=== PATIENT | female | born 1975 | race African-American/Black ===

== ENCOUNTER → 2016-11-17 | Outpatient (CLI) | payer MEDICARE, OTHER ==
--- NOTE | 2016-11-17 12:07 | NM ---
EXAMINATION TYPE: NM bone 3 phase DATE OF EXAM: 11/17/2016 11:22 AM COMPARISON: NONE HISTORY: Osteomyelitis Triple phase bone scintigraphy was performed following the injection of26.1 mCi Tc 99m MDP. Immediat e images and 3 hours post injection images acquired. FINDINGS: Blood flow: There is subtle increased radiotracer within the medial right ankle on blood flow suspici ous visualized during the midportion of the blood flow. Blood pool: Subtle radiotracer accumulation may be along the medial right ankle. Static images: Some focal uptake may be within the proximal medial distal ankle on static images. IMPRESSION: 1. Increased uptake within the medial right ankle on all 3 phases of bone scan. Some early osteomyeli tis may be present. Correlate with location of the patient's abnormality.
== END | disposition home or self-care (01) ==
LOC: RADNMMAIN 07:26
PROVIDERS: ATTEND Thoracic Surgery (Cardiothoracic Vascular Surgery)
DX: M86.8X8 Other osteomyelitis, other site (principal)
CPT/HCPCS: 78315; A9503; 93923

== ENCOUNTER 2021-12-08 19:46 | Inpatient (IN) | payer MEDICARE, OTHER ==
[2021-12-08] MEDS ORDERED: MORPHINE SULFATE 4 MG/ML SYRINGE IV STA (20:02)
[2021-12-08] MEDS ORDERED: ONDANSETRON 4 MG/2 ML VIAL IVP STA (20:02)
[2021-12-08] MEDS ORDERED: ACETAMINOPHEN IV (For NPO) 1,000 MG in EMPTY BAG 1 BAG IVPB ONE (20:08)
[2021-12-08] MEDS ORDERED: LORazepam 2 MG/ML INJ IV STA (20:09)
--- NOTE | 2021-12-08 20:12 | ED ---
Abdominal Pain HPI - General Stated Complaint: Nausea, Anxiety Time Seen by Provider: 12/08/21 19:52 Source: RN notes reviewed - History of Present Illness Initial Comments: This is a 38-year-old female presents to emergency with lower abdominal pain. Coming from the dialysis center. Has had diarrhea for 2 weeks. No blood. Now vomiting. Patient states she finished her dialysis's. Patient noted to be hypotensive which is usual for the patient during and right after dialysis. Lower abdominal pain, exacerbated by palpation and movement. Does not produce urine No headache, no fever or chills, no changes in vision or hearing, no sore throat or difficulty with speech, no neck pain, no chest pain or shortness of breath, no nausea or vomiting, no changes in urination or bowel movements, no numbness or tingling, no extremity pain, no skin rashes or lesions. - Related Data Home Medications Medication Instructions Recorded Confirmed Atorvastatin [Lipitor] 40 mg PO HS 05/19/16 12/08/21 Clopidogrel [Plavix] 75 mg PO DAILY 05/19/16 12/08/21 amLODIPine BESYLATE [Norvasc] 5 mg PO DAILY 10/21/16 12/08/21 Insulin Detemir (Levemir) [Levemir] 18 unit SQ HS 03/17/17 12/08/21 ARIPiprazole [Abilify] 2 mg PO DAILY 12/08/21 12/08/21 DULoxetine HCL [Cymbalta] 60 mg PO HS 12/08/21 12/08/21 Doxepin HCl 50 mg PO HS 12/08/21 12/08/21 Insulin Regular, Human [NovoLIN R] See Protocol SQ TID-W/MEALS 12/08/21 12/08/21 LORazepam [Ativan] 1 mg PO BID PRN 12/08/21 12/08/21 Midodrine HCl 15 mg PO DIRECTED PRN 12/08/21 12/08/21 Nephrovite 1 tab PO DAILY 12/08/21 12/08/21 Propranolol [Inderal] 20 mg PO BID 12/08/21 12/08/21 oxyCODONE HCL 5 mg PO Q4H PRN 12/08/21 12/08/21 tiZANidine [Zanaflex] 2 mg PO Q6H PRN 12/08/21 12/08/21 Allergies Allergy/AdvReac Type Severity Reaction Status Date / Time No Known Allergies Allergy Verified 12/08/21 21:23 Review of Systems ROS Statement: Those systems with pertinent positive or pertinent negative responses have been documented in the HPI. ROS Other: All systems not noted in ROS Statement are negative. 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 History of Any Multi-Drug Resistant Organisms: MRSA Date of last positivie culture/infection: 09/22/17 MDRO Source:: toe Past Surgical History: Cholecystectomy, Orthopedic Surgery Additional Past Surgical History / Comment(s): A-V GRAFT. 3 D&C'S; Kidney transplant 2008. ORIF RIGHT 5TH finger.; numerous dialysis catheters, peritoneal dialysis catheter insertion and removal, IJ permacath insertion and removal, left-sided IJ permacath, amputiation of all digits left hand and right middle finger tip amputation 07/08/2016 Past Anesthesia/Blood Transfusion Reactions: No Reported Reaction Additional Past Anesthesia/Blood Transfusion Reaction / Comment(s): Pt states she has received blood in the past without reaction. Additional Psychological History / Comment(s): resides at [facility]. - Past Family History Mother Family Medical History: Diabetes Mellitus Additional Family Medical History / Comment(s): RENAL FAILURE, SICKLE CELL TRAIT Father Family Medical History: Diabetes Mellitus, Hyperlipidemia, Hypertension Additional Family Medical History / Comment(s): Father at the age of 73 yrs. General Exam General appearance: alert, in distress Head exam: Present: atraumatic, normocephalic, normal inspection Eye exam: Present: normal appearance, PERRL, EOMI. Absent: scleral icterus, conjunctival injection, periorbital swelling ENT exam: Present: normal exam, mucous membranes moist Neck exam: Present: normal inspection. Absent: tenderness, meningismus, lymphadenopathy Respiratory exam: Present: normal lung sounds bilaterally. Absent: respiratory distress, wheezes, rales, rhonchi, stridor Cardiovascular Exam: Present: regular rate, normal rhythm, normal heart sounds. Absent: systolic murmur, diastolic murmur, rubs, gallop, clicks GI/Abdominal exam: Present: soft, tenderness, guarding, normal bowel sounds. Absent: distended, rebound, rigid Extremities exam: Present: full ROM, normal capillary refill, other (Patient is a double amputee bilateral lower legs). Absent: tenderness, pedal edema, joint swelling, calf tenderness Back exam: Present: normal inspection Neurological exam: Present: alert, oriented X3, CN II-XII intact Psychiatric exam: Present: normal affect, normal mood Skin exam: Present: warm, dry, intact, normal color. Absent: rash Course Vital Signs 12/08/21 12/08/21 12/09/21 19:51 23:54 01:55 Temperature 97.3 F L Pulse Rate 72 75 Respiratory 103 H 16 Rate Blood Pressure 80/63 73/62 92/42 O2 Sat by Pulse 94 L Oximetry - Reevaluation(s) Reevaluation #1: 12/09/21 00:26 Medical record is reviewed Symptoms are improved pain buckley. However the patient remains hypotensive. Patient is informed of results and questions answered Patient in no distress Medical Decision Making - Medical Decision Making Lower abdominal pain, hemodialysis patient.Patient came from hemodialysis and was hypotensive, patient states she normally gets hypertensive dialysis. However patient remained hypotensive. We had trouble getting initial blood work. Patient received a 500 mL fluid bolus with normal saline. Patient's lactic acid was 2.1. Patient has had 2 weeks of diarrhea and now vomiting. Patient will be admitted for evaluation. Well discussed case in detail with Dr. Allen Reynolds. consult gastroenterology. Given the fact patient has had diarrhea for 2 weeks and vomiting. Dehydration is likely culprit. The case was discussed in detail with ED attending physician. Presentation, findings, treatment plan discussed in detail. Repeat fluid bolus ordered after discussion with ED attending physician, Dr. Santos. Computed tomography scan shows mild colitis. Patient was told to return to the ER for any signs or symptoms worsen. Told to return immediately if any other problems arise. All questions answered. Treatment plan discussed. Patient in agreement Every effort has been made to ensure accuracy of this dictation. However, due to the limitations of electronic medical records and dictation devices, errors in charting still occur. Due to the renal failure will hold any potassium replacement Case was discussed with Dr. Reynolds at 12:26 AM ED attending physician, Dr. Santos. - Lab Data Result diagrams: 12/08/21 23:20 12/08/21 23:20 Lab Results 12/08/21 12/08/21 12/08/21 Range/Units 23:20 23:20 23:20 WBC 7.0 (3.8-10.6) k/uL RBC 4.62 (3.80-5.40) m/uL Hgb 12.8 (11.4-16.0) gm/dL Hct 40.0 (34.0-46.0) % MCV 86.5 (80.0-100.0) fL MCH 27.7 (25.0-35.0) pg MCHC 32.0 (31.0-37.0) g/dL RDW 16.7 H (11.5-15.5) % Plt Count 125 L (150-450) k/uL MPV 8.9 Neutrophils % 52 % Lymphocytes % 39 % Monocytes % 4 % Eosinophils % 3 % Basophils % 1 % Neutrophils # 3.6 (1.3-7.7) k/uL Lymphocytes # 2.7 (1.0-4.8) k/uL Monocytes # 0.3 (0-1.0) k/uL Eosinophils # 0.2 (0-0.7) k/uL Basophils # 0.1 (0-0.2) k/uL Hypochromasia Slight Anisocytosis Slight PT 10.6 (9.0-12.0) sec INR 1.0 (<1.2) APTT 25.1 (22.0-30.0) sec Sodium 130 L (137-145) mmol/L Potassium 2.7 L* (3.5-5.1) mmol/L Chloride 96 L (98-107) mmol/L Carbon Dioxide 22 (22-30) mmol/L Anion Gap 12 mmol/L BUN 5 L (7-17) mg/dL Creatinine 3.11 H (0.52-1.04) mg/dL Est GFR (CKD-EPI)AfAm 20 (>60 ml/min/1.73 sqM) Est GFR (CKD-EPI)NonAf 17 (>60 ml/min/1.73 sqM) Glucose 221 H (74-99) mg/dL Lactic Ac Sepsis Rflx Plasma Lactic Acid Conor (0.7-2.0) mmol/L Calcium 7.8 L (8.4-10.2) mg/dL Phosphorus 1.8 L (2.5-4.5) mg/dL Magnesium 1.6 (1.6-2.3) mg/dL Total Bilirubin 0.8 (0.2-1.3) mg/dL AST 15 (14-36) U/L ALT 8 (4-34) U/L Alkaline Phosphatase 94 (38-126) U/L Total Protein 7.1 (6.3-8.2) g/dL Albumin 2.7 L (3.5-5.0) g/dL Lipase 380 H (23-300) U/L Coronavirus (PCR) (Not Detectd) 12/08/21 12/08/21 12/09/21 Range/Units 23:20 23:54 01:54 WBC (3.8-10.6) k/uL RBC (3.80-5.40) m/uL Hgb (11.4-16.0) gm/dL Hct (34.0-46.0) % MCV (80.0-100.0) fL MCH (25.0-35.0) pg MCHC (31.0-37.0) g/dL RDW (11.5-15.5) % Plt Count (150-450) k/uL MPV Neutrophils % % Lymphocytes % % Monocytes % % Eosinophils % % Basophils % % Neutrophils # (1.3-7.7) k/uL Lymphocytes # (1.0-4.8) k/uL Monocytes # (0-1.0) k/uL Eosinophils # (0-0.7) k/uL Basophils # (0-0.2) k/uL Hypochromasia Anisocytosis PT (9.0-12.0) sec INR (<1.2) APTT (22.0-30.0) sec Sodium (137-145) mmol/L Potassium (3.5-5.1) mmol/L Chloride (98-107) mmol/L Carbon Dioxide (22-30) mmol/L Anion Gap mmol/L BUN (7-17) mg/dL Creatinine (0.52-1.04) mg/dL Est GFR (CKD-EPI)AfAm (>60 ml/min/1.73 sqM) Est GFR (CKD-EPI)NonAf (>60 ml/min/1.73 sqM) Glucose (74-99) mg/dL Lactic Ac Sepsis Rflx Y Plasma Lactic Acid Conor 2.1 H* (0.7-2.0) mmol/L Calcium (8.4-10.2) mg/dL Phosphorus (2.5-4.5) mg/dL Magnesium (1.6-2.3) mg/dL Total Bilirubin (0.2-1.3) mg/dL AST (14-36) U/L ALT (4-34) U/L Alkaline Phosphatase (38-126) U/L Total Protein (6.3-8.2) g/dL Albumin (3.5-5.0) g/dL Lipase (23-300) U/L Coronavirus (PCR) Not Detected (Not Detectd) 12/09/21 Range/Units 01:55 WBC (3.8-10.6) k/uL RBC (3.80-5.40) m/uL Hgb (11.4-16.0) gm/dL Hct (34.0-46.0) % MCV (80.0-100.0) fL MCH (25.0-35.0) pg MCHC (31.0-37.0) g/dL RDW (11.5-15.5) % Plt Count (150-450) k/uL MPV Neutrophils % % Lymphocytes % % Monocytes % % Eosinophils % % Basophils % % Neutrophils # (1.3-7.7) k/uL Lymphocytes # (1.0-4.8) k/uL Monocytes # (0-1.0) k/uL Eosinophils # (0-0.7) k/uL Basophils # (0-0.2) k/uL Hypochromasia Anisocytosis PT (9.0-12.0) sec INR (<1.2) APTT (22.0-30.0) sec Sodium (137-145) mmol/L Potassium (3.5-5.1) mmol/L Chloride (98-107) mmol/L Carbon Dioxide (22-30) mmol/L Anion Gap mmol/L BUN (7-17) mg/dL Creatinine (0.52-1.04) mg/dL Est GFR (CKD-EPI)AfAm (>60 ml/min/1.73 sqM) Est GFR (CKD-EPI)NonAf (>60 ml/min/1.73 sqM) Glucose (74-99) mg/dL Lactic Ac Sepsis Rflx Plasma Lactic Acid Conor 1.6 (0.7-2.0) mmol/L Calcium (8.4-10.2) mg/dL Phosphorus (2.5-4.5) mg/dL Magnesium (1.6-2.3) mg/dL Total Bilirubin (0.2-1.3) mg/dL AST (14-36) U/L ALT (4-34) U/L Alkaline Phosphatase (38-126) U/L Total Protein (6.3-8.2) g/dL Albumin (3.5-5.0) g/dL Lipase (23-300) U/L Coronavirus (PCR) (Not Detectd) Critical Care Time Critical Care Time: Yes Total Critical Care Time: 30 Critical Care Time: Critical care documentation for prolonged hypotension recalcitrant to IV fluids. Disposition Clinical Impression: Nausea vomiting and diarrhea, Colitis, Dehydration, Chronic renal failure, Hypotension Narrative: Chronic renal failure on hemodialysis Disposition: ADMITTED IP TO THIS [facility] Condition: Fair Decision to Admit Reason: Admit from EC Decision Time: 00:22
[2021-12-08] MEDS ORDERED: SODIUM CHLORIDE 0.9% 500 ML 500 ML IV ONE (21:26)
--- NOTE | 2021-12-08 21:38 | XR ---
EXAMINATION TYPE: XR chest 1V portable DATE OF EXAM: 12/08/2021 COMPARISON: 08/25/2016 HISTORY: Pain TECHNIQUE: Single frontal view of the chest is obtained. FINDINGS: There is demonstration of the left IJ dialysis type catheter with tip overlying the SVC/ri ght atrial junction. There is no focal air space opacity, pleural effusion, or pneumothorax seen. Th e cardiac silhouette size is within normal limits. The osseous structures are intact. Stable surgic al hardware about the left lower chest wall again seen. IMPRESSION: No acute process.
--- NOTE | 2021-12-08 22:00 | CT ---
EXAMINATION TYPE: CT abdomen pelvis wo con DATE OF EXAM: 12/08/2021 COMPARISON: None available HISTORY: mid abd pain CT DLP: 1004.4 mGycm Automated exposure control for dose reduction was used. TECHNIQUE: Helical acquisition of images was performed from the lung bases through the pelvis. FINDINGS: LUNG BASES: Minimal right basilar atelectasis. LIVER/GB: No significant abnormality is appreciated. PANCREAS: No significant abnormality is seen. SPLEEN: No significant abnormality is seen. ADRENALS: No significant abnormality is seen. KIDNEYS: No hydronephrosis or nephrolithiasis. 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 FREE AIR: No free air is visualized RETROPERITONEAL ADENOPATHY: None visualized REPRODUCTIVE ORGANS: No significant abnormality is seen URINARY BLADDER: No significant abnormality is seen. PELVIC ADENOPATHY: None visualized. OSSEOUS STRUCTURES: No significant abnormality is seen. BOWEL: Diffuse collapse of the colon with mild wall thickening. No bowel obstruction or free fluid. OTHER: Advanced atherosclerotic disease. Chronic appearing left pelvic anterior wall thickening with mild calcifications. IMPRESSION: NONSPECIFIC PANCOLONIC MILD WALL THICKENING AND COLLAPSE. FINDINGS MAY RELATE TO COLITIS IN THE APPRO PRIATE CLINICAL SETTING. ALTHOUGH MAY REPRESENT DECOMPRESSED COLON. NO BOWEL OBSTRUCTION. HORSESHOE KIDNEY WITH MARKED RENAL ATROPHY. CHRONIC APPEARING LEFT PELVIC ANTERIOR WALL THICKENING WITH MILD CALCIFICATIONS. ADVANCED ATHEROSCLEROTIC DISEASE.
[2021-12-08 23:28] LABS: Anisocytosis Slight; Basophils # (A) 0.1 k/uL (0-0.2); Basophils % (A) 1 %; Eosinophils # (A) 0.2 k/uL (0-0.7); Eosinophils % (A) 3 %; HGB 12.8 gm/dL (11.4-16.0); Hypochromasia Slight; Lymphocytes # (A) 2.7 k/uL (1.0-4.8); Lymphocytes % (A) 39 %; MCH 27.7 pg (25.0-35.0); MCV 86.5 fL (80.0-100.0); Mean Platelet Volume 8.9; Monocytes # (A) 0.3 k/uL (0-1.0); Monocytes % (A) 4 %; Neutrophils # (A) 3.6 k/uL (1.3-7.7); Neutrophils % (A) 52 %; Platelet Count 125 k/uL (150-450); RBC 4.62 m/uL (3.80-5.40); RDW 16.7 % (11.5-15.5)
[2021-12-08 23:40] LABS: Partial Thromboplastin Time 25.1 sec (22.0-30.0); Prothrombin Time 10.6 sec (9.0-12.0)
[2021-12-08 23:44] LABS: Albumin 2.7 g/dL (3.5-5.0); Calcium 7.8 mg/dL (8.4-10.2); Magnesium 1.6 mg/dL (1.6-2.3); Phosphorus 1.8 mg/dL (2.5-4.5); Total Bilirubin 0.8 mg/dL (0.2-1.3); Total Protein 7.1 g/dL (6.3-8.2)
[2021-12-08 23:54] LABS: Potassium 2.7 mmol/L (3.5-5.1)
[2021-12-09] MEDS ORDERED: SODIUM CHLORIDE 0.9% 500 ML 500 ML IV ONE (00:12)
[2021-12-09] MEDS ORDERED: NALOXONE 0.4 MG/ML 1 ML VIAL IV PRN (00:15)
[2021-12-09] MEDS ORDERED: ONDANSETRON 4 MG/2 ML VIAL IVP STA (00:18)
[2021-12-09] MEDS: ONDANSETRON 4 MG/2 ML VIAL IVP PRN ×2 (00:43→13:04)
[2021-12-09] MEDS ORDERED: INSULIN DETEMIR (LEVEMIR) 100 UNIT/ML SYR SQ SCH (00:45)
[2021-12-09] MEDS ORDERED: LORazepam 2 MG/ML INJ IV STA (02:19)
[2021-12-09 07:05] LABS: Glucose,Whole Blood 258 mg/dL (75-99)
[2021-12-09] MEDS: HEPARIN SODIUM,PORCINE/PF 5,000 UNIT/0.5 ML SYRINGE SQ SCH ×2 (10:11→23:40)
--- NOTE | 2021-12-09 11:27 | P.NPCON ---
History of Present Illness - Reason for Consult end stage renal disease - History of Present Illness Patient is a 46-year-old female with history of end-stage renal disease, on hemodialysis on a Wednesday schedule. Patient was sent into the hospital from dialysis yesterday as her blood pressure was significantly low towards the end of treatment. Patient reports having had diarrhea on and off for about 2 weeks. She denied any significant abdominal pain. Patient will was hypotensive with systolic blood pressure in the 70s. Currently she is maintained on IV fluids at 1 50 mL an hour. Potassium was also low. 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 History of Any Multi-Drug Resistant Organisms: MRSA Date of last positivie culture/infection: 09/22/17 MDRO Source:: toe Past Surgical History: Cholecystectomy, Orthopedic Surgery Additional Past Surgical History / Comment(s): A-V GRAFT. 3 D&C'S; Kidney tr ansplant 2008. ORIF RIGHT 5TH finger.; numerous dialysis catheters, peritoneal dialysis catheter insertion and removal, IJ permacath insertion and removal, left-sided IJ permacath, amputiation of all digits left hand and right middle finger tip amputation 07/08/2016 Past Anesthesia/Blood Transfusion Reactions: No Reported Reaction Additional Past Anesthesia/Blood Transfusion Reaction / Comment(s): Pt states she has received blood in the past without reaction. Additional Psychological History / Comment(s): resides at [facility]. - Past Family History Mother Family Medical History: Diabetes Mellitus Additional Family Medical History / Comment(s): RENAL FAILURE, SICKLE CELL TRAIT Father Family Medical History: Diabetes Mellitus, Hyperlipidemia, Hypertension Additional Family Medical History / Comment(s): Father at the age of 73 yrs. Medications and Allergies Home Medications Medication Instructions Recorded Confirmed Type Atorvastatin [Lipitor] 40 mg PO HS 05/19/16 12/08/21 History Clopidogrel [Plavix] 75 mg PO DAILY 05/19/16 12/08/21 History amLODIPine BESYLATE [Norvasc] 5 mg PO DAILY 10/21/16 12/08/21 History Insulin Detemir (Levemir) [Levemir] 18 unit SQ HS 03/17/17 12/08/21 History ARIPiprazole [Abilify] 2 mg PO DAILY 12/08/21 12/08/21 History DULoxetine HCL [Cymbalta] 60 mg PO HS 12/08/21 12/08/21 History Doxepin HCl 50 mg PO HS 12/08/21 12/08/21 History Insulin Regular, Human [NovoLIN R] See Protocol SQ TID-W/MEALS 12/08/21 12/08/21 History LORazepam [Ativan] 1 mg PO BID PRN 12/08/21 12/08/21 History Midodrine HCl 15 mg PO DIRECTED PRN 12/08/21 12/08/21 History Nephrovite 1 tab PO DAILY 12/08/21 12/08/21 History Propranolol [Inderal] 20 mg PO BID 12/08/21 12/08/21 History oxyCODONE HCL 5 mg PO Q4H PRN 12/08/21 12/08/21 History tiZANidine [Zanaflex] 2 mg PO Q6H PRN 12/08/21 12/08/21 History Allergies Allergy/AdvReac Type Severity Reaction Status Date / Time No Known Allergies Allergy Verified 12/08/21 21:23 Physical Exam Vitals: Vital Signs Temp Pulse Pulse Resp BP BP Pulse Ox 12/09/21 09:48 121/48 12/09/21 08:25 117/63 12/09/21 07:43 98.4 F 80 18 88/34 98 12/09/21 05:08 97.9 F 71 18 108/63 94 L 12/09/21 01:55 92/42 12/08/21 23:54 75 16 73/62 94 L 12/08/21 19:51 97.3 F L 72 103 H 80/63 Intake and Output 12/08/21 12/09/21 12/09/21 22:59 06:59 14:59 Other: Weight 99.5 kg Patient is awake comfortable. Not in any acute distress. Examination of the heart S1 and S2 Examination lungs bilateral breath sounds are heard Abdomen is soft nontender Examination lower extremity shows bilateral BKA Amputation of fingers noted on the left hand Currently with right IJ permacath. Left arm AV fistula has been ligated Results - Lab Results Most recent lab results Calcium 7.8 mg/dL (8.4-10.2) L 12/08/21 23:20 Phosphorus 1.8 mg/dL (2.5-4.5) L 12/08/21 23:20 Magnesium 1.6 mg/dL (1.6-2.3) 12/08/21 23:20 12/08/21 23:20 12/08/21 23:20 Assessment and Plan Assessment: 1. End-stage renal disease on hemodialysis on a Wednesday schedule via a right IJ permacath 2. Hypotension from volume loss from diarrhea, currently maintained on IV fluids 3. Diarrhea rule out C. diff colitis, CT of the abdomen shows changes suggestive of colitis 4. CK D mineral bone disorder 5. Hypokalemia we will replace Plan: Replace potassium. Continue with IV fluids Hemodialysis in a.m. no ultrafiltration consider antibiotics Check stool for C. diff
[2021-12-09] MEDS ORDERED: POTASSIUM CHLORIDE 20 MEQ in WATER FOR INJECTION 1 100ML.BAG IVPB STA (11:30)
[2021-12-09 11:39] LABS: Glucose,Whole Blood 230 mg/dL (75-99)
[2021-12-09] MEDS: SODIUM CHLORIDE 0.9% 1,000 ML IV SCH ×2 (11:40→15:00)
--- NOTE | 2021-12-09 15:20 | P.CONS ---
History of Present Illness - Reason for Consult Consult date: 12/09/21 Colitis Requesting physician: Valentin Álvarez - Chief Complaint Abdominal pain, diarrhea - History of Present Illness [id number] -[place] female with multiple medical comorbidities including chronic renal disease status post kidney transplant on hemodialysis, diabetes mellitus, vascular disorder, heart disease who presented to the emergency department with complaints of abdominal pain and diarrhea for last 2 weeks duration. States she has been having loose bowel movements which are nonbloody 3-4 day for last 2 weeks duration. She's had some associated nausea but no vomiting. She had a CT of the abdomen and pelvis that showed a nonspecific pancolitis mild cough thickening with the electrical colitis. Patient states she's had similar symptoms in the past. States she had a colonoscopy about 3-4 years ago which she states was normal. Reports abdominal pain and diarrhea has improved. She's had no bowel movements today. Stool studies have been ordered. She's been afebrile, and no evidence of leukocytosis. Review of Systems REVIEW OF SYSTEMS: CARDIOPULMONARY: No chest pain or shortness of breath. Gastrointestinal: Abdominal pain greatest in the left mid and lower quadrants. No nausea or vomiting. No hematemesis, coffee-ground emesis. Diarrhea 2 weeks duration. No rectal bleeding, or melena. GENITOURINARY: No dysuria or hematuria. MUSCULOSKELETAL: Reports normal range of motion., Joint pain. SKIN: No rashes. No jaundice. ENDOCRINE: No chills, fevers. No excessive weight gain or loss. No polydipsia or polyuria. PSYCHIATRIC: Unremarkable. NEUROLOGY: No change in mental status. Denies dizziness, headache. ENT: Vision unremarkable. CONSTITUTIONAL: No recent weight loss. No fever, chills, night sweats. 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 History of Any Multi-Drug Resistant Organisms: MRSA Year Discovered:: 09/22/17 MDRO Source:: toe Past Surgical History: Cholecystectomy, Orthopedic Surgery Additional Past Surgical History / Comment(s): A-V GRAFT. 3 D&C'S; Kidney transplant 2008. ORIF RIGHT 5TH finger.; numerous dialysis catheters, peritoneal dialysis catheter insertion and removal, IJ permacath insertion and removal, left-sided IJ permacath, amputiation of all digits left hand and right middle finger tip amputation 07/08/2016 Past Anesthesia/Blood Transfusion Reactions: No Reported Reaction Additional Past Anesthesia/Blood Transfusion Reaction / Comm: Pt states she has received blood in the past without reaction. Additional Psychological History / Comment(s): resides at [facility]. - Past Family History Mother Family Medical History: Diabetes Mellitus Additional Family Medical History / Comment(s): RENAL FAILURE, SICKLE CELL TRAIT Father Family Medical History: Diabetes Mellitus, Hyperlipidemia, Hypertension Additional Family Medical History / Comment(s): Father at the age of 73 yrs. Medications and Allergies Home Medications Medication Instructions Recorded Confirmed Type Atorvastatin [Lipitor] 40 mg PO HS 05/19/16 12/08/21 History Clopidogrel [Plavix] 75 mg PO DAILY 05/19/16 12/08/21 History amLODIPine BESYLATE [Norvasc] 5 mg PO DAILY 10/21/16 12/08/21 History Insulin Detemir (Levemir) [Levemir] 18 unit SQ HS 03/17/17 12/08/21 History ARIPiprazole [Abilify] 2 mg PO DAILY 12/08/21 12/08/21 History DULoxetine HCL [Cymbalta] 60 mg PO HS 12/08/21 12/08/21 History Doxepin HCl 50 mg PO HS 12/08/21 12/08/21 History Insulin Regular, Human [NovoLIN R] See Protocol SQ TID-W/MEALS 12/08/21 12/08/21 History LORazepam [Ativan] 1 mg PO BID PRN 12/08/21 12/08/21 History Midodrine HCl 15 mg PO DIRECTED PRN 12/08/21 12/08/21 History Nephrovite 1 tab PO DAILY 12/08/21 12/08/21 History Propranolol [Inderal] 20 mg PO BID 12/08/21 12/08/21 History oxyCODONE HCL 5 mg PO Q4H PRN 12/08/21 12/08/21 History tiZANidine [Zanaflex] 2 mg PO Q6H PRN 12/08/21 12/08/21 History Allergies Allergy/AdvReac Type Severity Reaction Status Date / Time No Known Allergies Allergy Verified 12/08/21 21:23 Physical Exam Vitals: Vital Signs Temp Pulse Pulse Resp BP BP Pulse Ox 12/09/21 09:48 121/48 12/09/21 08:25 117/63 12/09/21 07:43 98.4 F 80 18 88/34 98 12/09/21 05:08 97.9 F 71 18 108/63 94 L 12/09/21 01:55 92/42 12/08/21 23:54 75 16 73/62 94 L 12/08/21 19:51 97.3 F L 72 103 H 80/63 Intake and Output 12/08/21 12/09/21 12/09/21 22:59 06:59 14:59 Other: Weight 99.5 kg General appearance: The patient is alert, oriented, appears in no acute distress. HET: Head is normocephalic and atraumatic. Conjunctiva pink. Sclera anicteric. Neck: Supple without lymphadenopathy. Trachea midline. Heart: S1 S2. Regular rate and rhythm. Lungs: Clear to auscultation. Abdomen: Soft, tender to palpation in the left mid and lower quadrant, nondistended with bowel sounds. No guarding or rigidity. Skin: No rashes. No jaundice. Extremities: Normal skin color and turgor. Bilateral [id number]-dsoo amputation. Left hand with fingers amputated. Neurological: No focal deficits. Alert and oriented x3. Results CBC & Chem 7: 12/08/21 23:20 12/08/21 23:20 Labs: Abnormal Lab Results - Last 24 Hours (Table) 12/08/21 12/08/21 12/08/21 Range/Units 23:20 23:20 23:20 RDW 16.7 H (11.5-15.5) % Plt Count 125 L (150-450) k/uL Sodium 130 L (137-145) mmol/L Potassium 2.7 L* (3.5-5.1) mmol/L Chloride 96 L (98-107) mmol/L BUN 5 L (7-17) mg/dL Creatinine 3.11 H (0.52-1.04) mg/dL Glucose 221 H (74-99) mg/dL POC Glucose (mg/dL) (75-99) mg/dL Plasma Lactic Acid Conor 2.1 H* (0.7-2.0) mmol/L Calcium 7.8 L (8.4-10.2) mg/dL Phosphorus 1.8 L (2.5-4.5) mg/dL Albumin 2.7 L (3.5-5.0) g/dL Lipase 380 H (23-300) U/L 12/09/21 Range/Units 07:03 RDW (11.5-15.5) % Plt Count (150-450) k/uL Sodium (137-145) mmol/L Potassium (3.5-5.1) mmol/L Chloride (98-107) mmol/L BUN (7-17) mg/dL Creatinine (0.52-1.04) mg/dL Glucose (74-99) mg/dL POC Glucose (mg/dL) 258 H (75-99) mg/dL Plasma Lactic Acid Conor (0.7-2.0) mmol/L Calcium (8.4-10.2) mg/dL Phosphorus (2.5-4.5) mg/dL Albumin (3.5-5.0) g/dL Lipase (23-300) U/L Comments: CT of the abdomen and pelvis without contrast shows nonspecific pancolonic mild wall thickening and collapse. Findings may relate to colitis in the appropriate clinical setting. Although may represent decompressed colon. No bowel obstruction. Portion kidney with marked renal atrophy. Chronic appearing left pelvic anterior wall thickening with mild calcification. Advanced atherosclerotic disease. Assessment and Plan (1) Colitis Narrative/Plan: 46-year-old with multiple comorbidities presented to the emergency department with complaints of abdominal pain with associated diarrhea 2 weeks duration. She denies any blood in her stool. States it's been loose and watery up to 3-4 times a day. She's had no bowel movement since she's been in the hospital. Stool studies have been ordered but are collected due to the above reason. She states she's had similar symptoms in the past and had a colonoscopy 3-4 years ago report not available at this time. She states it was normal findings. She denies any previous history of irritable bowel disease or inflammatory bowel disease. She denies any fevers or chills, no recent traveling. She had a CT of the abdomen and pelvis that showed nonspecific pancolitis. Possible etiologies include infectious versus ischemic. Will await stool cultures this patient has no evidence of leukocytosis or fever. We'll continue to monitor symptoms. Current Visit: Yes Status: Acute Code(s): K52.9 - NONINFECTIVE GASTROENTER ITIS AND COLITIS, UNSPECIFIED SNOMED Code(s): 28475034 Plan: 1. Continue symptomatic and supportive care 2. May have clear liquid diet 3. Protonix 40 mg daily 4. Agree with the stool studies 5. Further recommendations based on clinical course Thank you for this consultation, we will continue to follow. Dr. Brittni Livingston I agree with the dictator's note, documented as a scribe by Maria E Barrett.
[2021-12-09] MEDS: ACETAMINOPHEN TAB 325 MG TAB PO PRN (16:08)
[2021-12-09] MEDS ORDERED: LORazepam 1 MG TAB PO PRN (17:01)
[2021-12-09 17:43] LABS: Glucose,Whole Blood 246 mg/dL (75-99)
[2021-12-09] MEDS: DULoxetine HCL 60 MG CAPSULE.DR PO SCH (20:34)
[2021-12-09] MEDS: ATORVASTATIN 40 MG TAB PO SCH ×2 (20:34→20:40)
[2021-12-09] MEDS: MORPHINE SULFATE 2 MG/ML SYRINGE IVP PRN (21:01)
[2021-12-09] MEDS: LORazepam 2 MG/ML INJ IV PRN (21:01)
[2021-12-09] MEDS: INSULIN DETEMIR (LEVEMIR) 100 UNIT/ML SYR SQ SCH (23:00)
[2021-12-09] MEDS: DOXEPIN 25 MG CAP PO SCH (23:42)
[2021-12-09] MEDS: PROPRANOLOL 20 MG TAB PO SCH (23:42)
[2021-12-10 01:59] LABS: Glucose,Whole Blood 264 mg/dL (75-99)
[2021-12-10] MEDS: SODIUM CHLORIDE 0.9% 1,000 ML IV SCH ×2 (05:11→17:04)
[2021-12-10] MEDS: MORPHINE SULFATE 2 MG/ML SYRINGE IVP PRN (05:41)
[2021-12-10] MEDS: amLODIPine 5 MG TAB PO SCH (07:16)
[2021-12-10 07:25] LABS: ALT 7 U/L (4-34); African American GFR (CKD) 11 (>60 ml/min/1.73 sqM); Albumin 2.3 g/dL (3.5-5.0); Albumin/Globulin Ratio 0.6; Anion Gap 4 mmol/L; Blood Urea Nitrogen 13 mg/dL (7-17); Calcium 8.1 mg/dL (8.4-10.2); Carbon Dioxide 25 mmol/L (22-30); Chloride 102 mmol/L (98-107); Globulin 3.9 g/dL; Glucose 185 mg/dL (74-99); Non-African American GFR(CKD) 10 (>60 ml/min/1.73 sqM); Sodium 131 mmol/L (137-145); Total Bilirubin 0.7 mg/dL (0.2-1.3); Total Protein 6.2 g/dL (6.3-8.2)
[2021-12-10 07:37] LABS: Magnesium 1.7 mg/dL (1.6-2.3); Phosphorus 3.5 mg/dL (2.5-4.5); Potassium 2.8 mmol/L (3.5-5.1)
[2021-12-10 07:38] LABS: AST 18 U/L (14-36); Alkaline Phosphatase 68 U/L (38-126)
[2021-12-10 08:11] LABS: Glucose,Whole Blood 117 mg/dL (75-99)
[2021-12-10] MEDS: ARIPiprazole 2 MG TAB PO SCH (08:11)
[2021-12-10] MEDS: PROPRANOLOL 20 MG TAB PO SCH ×2 (08:11→22:48)
[2021-12-10] MEDS: CLOPIDOGREL 75 MG TAB PO SCH (08:11)
[2021-12-10] MEDS: HEPARIN SODIUM,PORCINE/PF 5,000 UNIT/0.5 ML SYRINGE SQ SCH ×2 (08:11→22:48)
[2021-12-10] MEDS: FOLIC ACID-VIT B COMPLEX-VIT C 1 CAP PO SCH (08:11)
--- NOTE | 2021-12-10 12:49 | P.PN ---
Subjective Patient is a 46-year-old female with history of end-stage renal disease on hemodialysis on a Wednesday schedule. Patient was admitted to the hospital with complaints of abdominal pain diarrhea and hypotension. She was found to have significantly low blood pressure with systolic blood pressure in the 70s. Lactic acid was also elevated. Patient has received IV fluids. She states she is feeling better. No diarrhea reported. Potassium has been low but patient refuses to take oral potassium as she is not able to tolerated and she refuses IV as it santiago Patient is scheduled for hemodialysis today. We will replace the potassium with her dialysis treatment. Objective - Vital Signs Vital signs: Vital Signs Temp 97.8 F 12/10/21 04:32 Pulse 63 12/10/21 04:32 Resp 18 12/10/21 04:32 BP 105/58 12/10/21 05:39 Pulse Ox 99 12/10/21 04:32 Intake & Output 12/09/21 12/10/21 12/10/21 18:59 06:59 18:59 Intake Total 300 Balance 300 Intake: Intake, IV Titration 300 Amount Sodium Chloride 0.9% 1, 300 000 ml @ 70 mls/hr IV . [id number] [facility] Rx#:[id number] Other: Voiding Method Diaper Diaper Diaper # Bowel Movements 1 - Exam Patient is awake comfortable. She is not in any acute distress. 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 - Labs CBC & Chem 7: 12/08/21 23:20 12/10/21 05:48 Labs: Abnormal Lab Results - Last 24 Hours (Table) 12/09/21 12/10/21 12/10/21 Range/Units 17:41 01:54 05:48 Sodium 131 L (137-145) mmol/L Potassium 2.8 L (3.5-5.1) mmol/L Creatinine 4.94 H (0.52-1.04) mg/dL Glucose 185 H (74-99) mg/dL POC Glucose (mg/dL) 246 H 264 H (75-99) mg/dL Calcium 8.1 L (8.4-10.2) mg/dL Total Protein 6.2 L (6.3-8.2) g/dL Albumin 2.3 L (3.5-5.0) g/dL 12/10/21 Range/Units 08:09 Sodium (137-145) mmol/L Potassium (3.5-5.1) mmol/L Creatinine (0.52-1.04) mg/dL Glucose (74-99) mg/dL POC Glucose (mg/dL) 117 H (75-99) mg/dL Calcium (8.4-10.2) mg/dL Total Protein (6.3-8.2) g/dL Albumin (3.5-5.0) g/dL Microbiology - Last 24 Hours (Table) 12/09/21 15:52 Stool Culture - Preliminary Stool Assessment and Plan Assessment: 1. End-stage renal disease on hemodialysis on a Wednesday schedule via a right IJ permacath 2. Hypotension from volume loss from diarrhea, currently maintained on IV fluids 3. Diarrhea rule out C. diff colitis, CT of the abdomen shows changes suggestive of colitis 4. CK D mineral bone disorder 5. Hypokalemia we will replace. Patient is not able to tolerate by mouth meds. She complained of significant burning with IV POTASSIUM We will replace the potassium with dialysis today Plan: Replace potassium with hemodialysis today Decrease IV fluids
[2021-12-10] MEDS: MIDODRINE 5 MG TAB PO PRN ×2 (14:01→20:03)
[2021-12-10 14:05] LABS: Anisocytosis Slight; Basophils % (A) 1 %; Eosinophils # (A) 0.2 k/uL (0-0.7); Eosinophils % (A) 6 %; HCT 31.3 % (34.0-46.0); HGB 10.1 gm/dL (11.4-16.0); Lymphocytes # (A) 2.4 k/uL (1.0-4.8); Lymphocytes % (A) 69 %; MCH 27.5 pg (25.0-35.0); MCHC 32.2 g/dL (31.0-37.0); MCV 85.4 fL (80.0-100.0); Mean Platelet Volume 8.6; Monocytes # (A) 0.1 k/uL (0-1.0); Monocytes % (A) 3 %; Neutrophils # (A) 0.7 k/uL (1.3-7.7); Neutrophils % (A) 20 %; Platelet Count 126 k/uL (150-450); RBC 3.66 m/uL (3.80-5.40); RDW 17.4 % (11.5-15.5); WBC 3.4 k/uL (3.8-10.6)
--- NOTE | 2021-12-10 14:20 | HP ---
HISTORY AND PHYSICAL 46-year-old female with recurrent pain with multiple amputations in the past, came in with abdominal pain, diarrhea, was seen by GI doctor. She has end- stage renal disease, diabetes mellitus, nausea, vomiting, fall, nonspecific pancolitis, admitted with GI recommendations and she wants to go to [facility] for alf placement. She can not take care of herself at home. REVIEW OF SYMPTOMS: 14-point review of systems please see old chart. Medical history see old chart. Family history see old chart. MEDICATIONS: See old chart. Everything was reviewed. ALLERGIES: Negative. Labs show sodium 130, potassium 2.7, BUN of 5, creatinine 3.11. PHYSICAL EXAMINATION: Temp 97.3, pulse 72, respiratory 18-20, blood pressure 80s to 108 over 60s to 70s. CARDIOVASCULAR S1, S2. LUNGS clear. GI is soft, distended, tender to palpation, diffuse. SKIN: No rashes or excoriations, bruising. NEUROLOGIC: Cranial nerves intact. Labs reviewed. CT of the abdomen pelvis is reviewed. ASSESSMENT: 1. Nonspecific colitis. 2. End-stage renal disease. 3. Severe hypokalemia secondary to diarrhea. Clear liquid diet. Advance diet as tolerated. Stool cultures. Prognosis guarded. MMODL / IJN: [id number] /
[2021-12-10 14:42] LABS: Hypochromasia (M) Present
--- NOTE | 2021-12-10 15:27 | P.PN ---
Subjective Progress Note Date: 12/10/21 Principal diagnosis: Abdominal pain -year-old female with multiple comorbidities who presented to the emergency department for complaints of abdominal pain. CT of the abdomen showed possible mild colitis. Today patient states abdominal pain has improved. She just wants to sleep and never when keeps waking her up. He's been afebrile. Patient had one bowel movement yesterday. C. diff negative as well as local blood and stool lactoferrin. Stool culture is pending. She denies any nausea or vomiting. She's been tolerating her diet. Hemolobin is stable at 10.1. Objective - Vital Signs Vital signs: Vital Signs Temp 97.8 F 12/10/21 04:32 Pulse 63 12/10/21 04:32 Resp 18 12/10/21 04:32 BP 105/58 12/10/21 05:39 Pulse Ox 99 12/10/21 04:32 Intake & Output 12/09/21 12/10/21 12/10/21 18:59 06:59 18:59 Intake Total 300 Balance 300 Intake: Intake, IV Titration 300 Amount Sodium Chloride 0.9% 1, 300 000 ml @ 70 mls/hr IV . [id number] [facility] Rx#:[id number] Other: Voiding Method Diaper Diaper # Bowel Movements 1 - Exam General appearance: The patient is alert, oriented, appears in no acute distress. HET: Head is normocephalic and atraumatic. Conjunctiva pink. Sclera anicteric. Neck: Supple without lymphadenopathy. Abdomen: Soft, mild tenderness in the left lower quadrant, nondistended with bowel sounds. No guarding or rigidity. Extremities: Normal skin color and turgor. No pedal edema Skin: No rashes, no jaundice Neurological: No focal deficits. Alert and oriented -3. - Labs CBC & Chem 7: 12/10/21 13:13 12/10/21 05:48 Labs: Abnormal Lab Results - Last 24 Hours (Table) 12/09/21 12/09/21 12/10/21 Range/Units 11:36 17:41 01:54 Sodium (137-145) mmol/L Potassium (3.5-5.1) mmol/L Creatinine (0.52-1.04) mg/dL Glucose (74-99) mg/dL POC Glucose (mg/dL) 230 H 246 H 264 H (75-99) mg/dL Calcium (8.4-10.2) mg/dL Total Protein (6.3-8.2) g/dL Albumin (3.5-5.0) g/dL 12/10/21 12/10/21 Range/Units 05:48 08:09 Sodium 131 L (137-145) mmol/L Potassium 2.8 L (3.5-5.1) mmol/L Creatinine 4.94 H (0.52-1.04) mg/dL Glucose 185 H (74-99) mg/dL POC Glucose (mg/dL) 117 H (75-99) mg/dL Calcium 8.1 L (8.4-10.2) mg/dL Total Protein 6.2 L (6.3-8.2) g/dL Albumin 2.3 L (3.5-5.0) g/dL Microbiology - Last 24 Hours (Table) 12/09/21 15:52 Stool Culture - Preliminary Stool Assessment and Plan (1) Colitis Narrative/Plan: 46-year-old with multiple comorbidities presented to the emergency department with complaints of abdominal pain with associated diarrhea 2 weeks duration. She denies any blood in her stool. States it's been loose and watery up to 3-4 times a day. She's had no bowel movement since she's been in the hospital. Stool studies have been ordered but are collected due to the above reason. She states she's had similar symptoms in the past and had a colonoscopy 3-4 years ago report not available at this time. She states it was normal findings. She denies any previous history of irritable bowel disease or inflammatory bowel disease. She denies any fevers or chills, no recent traveling. She had a CT of the abdomen and pelvis that showed nonspecific pancolitis. Possible etiologies include infectious versus ischemic. Will await stool cultures this patient has no evidence of leukocytosis or fever. In terms are improving. Patient is tolerating her diet. She is afebrile. Current Visit: Yes Status: Acute Code(s): K52.9 - NONINFECTIVE GASTROENTERITIS AND COLITIS, UNSPECIFIED SNOMED Code(s): 09469136 Plan: 1. Continue symptomatic and supportive care 2. Band status tolerated 3. Protonix 40 mg daily 4. Stool studies negative to date 5. No plans on endoscopic evaluation 6. If symptoms continue to improve, patient is cleared by gastroenterology for discharge Thank you for this consultation, we will continue to follow. Dr. Brittni Livingston I agree with the dictator's note, documented as a scribe by Maria E Barrett.
[2021-12-10 16:39] LABS: Glucose,Whole Blood 52 mg/dL (75-99)
[2021-12-10 17:26] LABS: Glucose,Whole Blood 61 mg/dL (75-99)
[2021-12-10 17:46] LABS: Glucose,Whole Blood 62 mg/dL (75-99)
[2021-12-10 18:19] LABS: Glucose,Whole Blood 83 mg/dL (75-99)
[2021-12-10 19:36] LABS: Glucose,Whole Blood 107 mg/dL (75-99)
[2021-12-10] MEDS: ATORVASTATIN 40 MG TAB PO SCH (22:47)
[2021-12-10] MEDS: INSULIN DETEMIR (LEVEMIR) 100 UNIT/ML SYR SQ SCH (22:48)
[2021-12-10] MEDS: DOXEPIN 25 MG CAP PO SCH (22:48)
[2021-12-10] MEDS: DULoxetine HCL 60 MG CAPSULE.DR PO SCH (22:48)
[2021-12-10 23:36] LABS: Chol/HDL Ratio 2.08 Ratio; LDL Cholesterol,Calculated 21.1 mg/dL (0.0-131.0)
[2021-12-11] MEDS: MORPHINE SULFATE 2 MG/ML SYRINGE IVP PRN ×2 (01:21→09:30)
[2021-12-11 06:51] LABS: Glucose,Whole Blood 87 mg/dL (75-99)
[2021-12-11] MEDS: amLODIPine 5 MG TAB PO SCH (08:29)
[2021-12-11] MEDS: PROPRANOLOL 20 MG TAB PO SCH ×2 (08:30→19:55)
[2021-12-11] MEDS ORDERED: LOPERAMIDE 2 MG CAP PO PRN (09:07)
[2021-12-11] MEDS ORDERED: DICYCLOMINE 20 MG TAB PO PRN (09:07)
--- NOTE | 2021-12-11 09:10 | P.PN ---
Subjective Progress Note Date: 12/11/21 Principal diagnosis: Abdominal pain 46-year-old female with multiple comorbidities who presented to the emergency department for complaints of abdominal pain. CT of the abdomen showed possible mild colitis. Today patient states abdominal pain has improved some. The 2 episodes of loose stools yesterday. Denies any blood in her stool. He's been afebrile. Patient had one bowel movement yesterday. C. diff negative as well as local blood and stool lactoferrin. Stool culture is pending. She denies any nausea or vomiting. She's been tolerating her diet. She has been hypokalemic, nephrology following closely. Objective - Vital Signs Vital signs: Vital Signs Temp 97.8 F 12/11/21 07:18 Pulse 89 12/11/21 07:18 Resp 18 12/11/21 07:18 BP 89/60 12/11/21 07:18 Pulse Ox 98 12/11/21 07:18 Intake & Output 12/10/21 12/11/21 12/11/21 18:59 06:59 18:59 Intake Total 1120 Output Total 880 Balance 240 Weight 99.5 kg Intake: IV 420 Sodium Chloride 0.9% 1, 420 000 ml @ 70 mls/hr IV . [id number] [facility] Rx#:[id number] Hemodialysis 700 Output: Hemodialysis 880 Other: Voiding Method Diaper Diaper # Voids 0 - Exam General appearance: The patient is alert, oriented, appears in no acute distress. HET: Head is normocephalic and atraumatic. Conjunctiva pink. Sclera anicteric. Neck: Supple without lymphadenopathy. Abdomen: Soft, mild tenderness in the left lower quadrant, nondistended with bowel sounds. No guarding or rigidity. Extremities: Normal skin color and turgor. No pedal edema Skin: No rashes, no jaundice Neurological: No focal deficits. Alert and oriented -3. - Labs CBC & Chem 7: 12/10/21 13:13 12/10/21 05:48 Labs: Abnormal Lab Results - Last 24 Hours (Table) 12/10/21 12/10/21 12/10/21 Range/Units 13:13 13:13 16:37 WBC 3.4 L (3.8-10.6) k/uL RBC 3.66 L (3.80-5.40) m/uL Hgb 10.1 L (11.4-16.0) gm/dL Hct 31.3 L (34.0-46.0) % RDW 17.4 H (11.5-15.5) % Plt Count 126 L (150-450) k/uL Neutrophils # 0.7 L (1.3-7.7) k/uL POC Glucose (mg/dL) 52 L (75-99) mg/dL Hemoglobin A1c 9.8 H (0.0-6.0) % HDL Cholesterol (40.00-60.00) mg/dL 12/10/21 12/10/21 12/10/21 Range/Units 17:00 17:13 17:44 WBC (3.8-10.6) k/uL RBC (3.80-5.40) m/uL Hgb (11.4-16.0) gm/dL Hct (34.0-46.0) % RDW (11.5-15.5) % Plt Count (150-450) k/uL Neutrophils # (1.3-7.7) k/uL POC Glucose (mg/dL) 61 L 62 L (75-99) mg/dL Hemoglobin A1c (0.0-6.0) % HDL Cholesterol 31.70 L (40.00-60.00) mg/dL 12/10/21 Range/Units 19:34 WBC (3.8-10.6) k/uL RBC (3.80-5.40) m/uL Hgb (11.4-16.0) gm/dL Hct (34.0-46.0) % RDW (11.5-15.5) % Plt Count (150-450) k/uL Neutrophils # (1.3-7.7) k/uL POC Glucose (mg/dL) 107 H (75-99) mg/dL Hemoglobin A1c (0.0-6.0) % HDL Cholesterol (40.00-60.00) mg/dL Assessment and Plan (1) Colitis Narrative/Plan: 46-year-old with multiple comorbidities presented to the emergency department with complaints of abdominal pain with associated diarrhea 2 weeks duration. She denies any blood in her stool. States it's been loose and watery up to 3-4 times a day. She's had no bowel movement since she's been in the hospital. Stool studies have been ordered but are collected due to the above reason. She states she's had similar symptoms in the past and had a colonoscopy 3-4 years ago report not available at this time. She states it was normal findings. She denies any previous history of irritable bowel disease or inflammatory bowel disease. She denies any fevers or chills, no recent traveling. She had a CT of the abdomen and pelvis that showed nonspecific pancolitis. Possible etiologies include infectious versus ischemic. Will await stool cultures this patient has no evidence of leukocytosis or fever. In terms are improving. Patient is tolerating her diet. She is afebrile. Current Visit: Yes Status: Acute Code(s): K52.9 - NONINFECTIVE GASTROENTERITIS AND COLITIS, UNSPECIFIED SNOMED Code(s): 46528790 Plan: 1. Continue symptomatic and supportive care 2. Diet as tolerated 3. Protonix 40 mg daily 4. Stool studies negative to date 5. No plans on endoscopic evaluation 6. Imodium as needed 7. Dicyclomine as needed Thank you for this consultation, we will continue to follow. Dr. Brittni Livingston I agree with the dictator's note, documented as a scribe by Maria E Barrett.
[2021-12-11] MEDS: CLOPIDOGREL 75 MG TAB PO SCH (09:23)
[2021-12-11] MEDS: HEPARIN SODIUM,PORCINE/PF 5,000 UNIT/0.5 ML SYRINGE SQ SCH ×2 (09:23→19:54)
[2021-12-11] MEDS: FOLIC ACID-VIT B COMPLEX-VIT C 1 CAP PO SCH (09:23)
[2021-12-11] MEDS: ARIPiprazole 2 MG TAB PO SCH (09:24)
[2021-12-11] MEDS: SODIUM CHLORIDE 0.9% 1,000 ML IV SCH (09:24)
[2021-12-11 10:22] LABS: African American GFR (CKD) 14.5 (60.0-200.0); Albumin 1.9 g/dL (3.8-4.9); Albumin/Globulin Ratio 0.54 (1.60-3.17); Anion Gap 9.8 mmol/L (10.00-18.00); BUN/Creat Ratio 2.01 Ratio (12.00-20.00); Calcium 7.7 mg/dL (8.7-10.3); Carbon Dioxide 21.8 mmol/L (20.0-27.5); Globulin 3.6 g/dL (1.6-3.3); Non-African American GFR(CKD) 12.5 (60.0-200.0); Total Bilirubin 0.3 mg/dL (0.30-1.20); Total Protein 5.5 g/dL (6.2-8.2)
[2021-12-11 10:39] LABS: Basophils # (A) 0.04 X 10*3/uL (0.00-0.10); Basophils % (A) 0.6 %; Eosinophils # (A) 0.29 X 10*3/uL (0.04-0.35); Eosinophils % (A) 4.5 %; HCT 33.4 % (37.2-46.3); HGB 10.5 g/dL (12.0-15.0); Immature Grans, Automated 0.5 %; Lymphocytes # (A) 3.54 X 10*3/uL (0.90-5.00); Lymphocytes % (A) 54.5 %; MCHC 31.4 g/dL (32.0-37.0); MCV 82.7 fL (80.0-97.0); Monocytes # (A) 0.42 X 10*3/uL (0.20-1.00); Monocytes % (A) 6.5 %; NRBC Per 100 WBC 0 /100 WBCS (0.0-0.0); Neutrophils # (A) 2.17 X 10*3/uL (1.80-7.70); Neutrophils % (A) 33.4 %; Platelet Count 133 X 10*3/uL (140-440); RBC 4.04 X 10*6/uL (4.10-5.20); WBC 6.49 X 10*3/uL (4.50-10.00)
[2021-12-11 11:27] LABS: Glucose,Whole Blood 62 mg/dL (75-99)
[2021-12-11 12:05] LABS: Glucose,Whole Blood 52 mg/dL (75-99)
[2021-12-11 12:40] LABS: Glucose,Whole Blood 78 mg/dL (75-99)
[2021-12-11 13:25] VITALS: BMI 33.3
--- NOTE | 2021-12-11 13:40 | CDI ---
Documentation Clarification Form Date: 12/11/2021 01:26:26 PM From: Jennyfer Suarez CCS, CCDS Admit Date: 12/09/2021 01:50:00 PM Patient Name: Arelis Huynh Visit Number: [id number] Discharge Date: ATTENTION: The Clinical Documentation Specialists (CDI) and [facility] Coding Staff appreciate your assistance in clarifying documentation. Please respond to the clarification below the line at the bottom and electronically sign. The CDI & [facility] Coding staff will review the response and follow-up if needed. Please note: Queries are made part of the Legal Health Record. If you have any questions, please contact the author of this message via ITS. Dr. Allen Reynolds: Anemia without further specification is documented in the patient's Past Medical History in the 12/08 ED Note and the 12/09 GI & Surgery Consults. Additional specificity regarding the Acuity & Type of Anemia is requested. History/Risk Factors per the 12/10 History & Physical: ESRD on Hemodialysis, Diabetes. Clinical indicators: Presented to the ED on 12/08 with Abdominal pain, Nausea, Anxiety, came from Dialysis Center, has had diarrhea for 2 weeks, now vomiting. Patient was hypotensive as usual during & after dialysis. Admit with Nausea, Vomiting, Diarrhea, Colitis, Dehydration, Chronic Renal Failure and Hypotension. Hemoglobin 12/08: 12.8. 12/10: 10.1. 12/11: 10.5 Hematocrit 12/08: 40.0. 12/10: 31.3. 12/11: 33.4 Treatment 12/09: Blood glucose monitoring, Telemetry, Fall precautions, Insulin sliding scale, Stool culture, IV Zofran 4 mg x1, IV Zofran 4 mg q8H/prn, IV Tylenol 100 mls @ 400 mls/hr x1, IV Ativan 0.5 mg x1 and 1 mg x1, IV Na Cl 500 mls @ 999 mls/hr q31M, IV Na Cl 500 mls @ 999 mls/hr q31M, IV Na Cl 1,000 mls @ 70 mls/hr q14H, Heparin sq 5,000 units q12H, IV KCL 200 mls @ 100 mls/hr x1, IV Morphine 1-2 mg q4H/prn. Home meds: Midodrine, Inderal, Insulin sq, Oxycodone, Nephrovite, Zanaflex, Ativan, Cymbalta, Abilify, Doxepin, Norvasc, Plavix, Lipitor Please clarify the type and acuity of anemia if known: [ ] Chronic blood loss anemia [ ] Hemolytic anemia [ ] Drug induced anemia [ ] Nutritional anemia [ ] Anemia of chronic kidney disease [ ] Anemia of other chronic condition, please specify, if known: [ ] Unable to determine [ ] Other, please specify (Template Last Revised: November 2020) MTDD
[2021-12-11] MEDS: MIDODRINE 5 MG TAB PO PRN (14:46)
[2021-12-11 14:51] LABS: Glucose,Whole Blood 144 mg/dL (75-99)
[2021-12-11] MEDS ORDERED: SODIUM CHLORIDE 0.9% 500 ML 500 ML IV ONE (15:00)
[2021-12-11 16:38] LABS: Glucose,Whole Blood 131 mg/dL (75-99)
[2021-12-11] MEDS: MIDODRINE 5 MG TAB PO SCH (17:41)
[2021-12-11] MEDS ORDERED: Potassium Replacement Protocol 1 EACH MISC MISCELLANE PRN (17:46)
--- NOTE | 2021-12-11 18:30 | PN ---
PROGRESS NOTE This 46-year-old -[place] female was admitted with colitis. Her IV blew. She is going to get a midline IV placed. Continue current treatment. She wants to go to [facility]. We are going to get Discharge Planning and work on that. GI doctors are advancing her diet. Cardiovascular S1-S2. Lungs clear. Hematology negative Homans. Last sugars were in the 50s to 130s. Will monitor her CBC due to hypokalemia. Prognosis extremely guarded. Try to get her into [facility] for physical therapy and long- term care. MMODL / IJN: [id number] /
[2021-12-11] MEDS: POTASSIUM BICARBONATE/CIT AC 20 MEQ TABLET.EFF PO SCH ×2 (18:41→19:38)
[2021-12-11] MEDS: LORazepam 2 MG/ML INJ IV PRN (19:37)
--- NOTE | 2021-12-11 19:42 | P.PN ---
Subjective Patient is a 46-year-old female with history of end-stage renal disease on hemodialysis on a Wednesday schedule. Patient was admitted to the hospital with complaints of abdominal pain diarrhea and hypotension. She was found to have significantly low blood pressure with systolic blood pressure in the 70s. Lactic acid was also elevated. Patient has received IV fluids. She states she is feeling better. No diarrhea reported. Potassium has been low but patient refuses to take oral potassium as she is not able to tolerated and she refuses IV as it santiago Patient is maintained on IV fluids at 70 mL an hour. This morning her IV came out and currently she is having another IV placed. C. diff toxin is negative. Objective - Vital Signs Vital signs: Vital Signs Temp 98.9 F 12/11/21 14:54 Pulse 62 12/11/21 15:53 Resp 17 12/11/21 14:54 BP 82/54 12/11/21 18:21 Pulse Ox 93 L 12/11/21 14:54 Intake & Output 12/11/21 12/11/21 12/12/21 06:59 18:59 06:59 Intake Total 280 Output Total 0 Balance 280 Weight 99.5 kg Intake: Intake, IV Titration 280 Amount Sodium Chloride 0.9% 1, 280 000 ml @ 70 mls/hr IV . [id number] [facility] Rx#:[id number] Output: Urine 0 Other: Voiding Method Diaper # Voids 0 0 - Exam Patient is awake comfortable. She is not in any acute distress. 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 - Labs CBC & Chem 7: 12/11/21 06:33 12/11/21 06:33 Labs: Abnormal Lab Results - Last 24 Hours (Table) 12/10/21 12/10/21 12/10/21 Range/Units 13:13 17:00 19:34 RBC (4.10-5.20) X 10*6/uL Hgb (12.0-15.0) g/dL Hct (37.2-46.3) % MCH (27.0-32.0) pg MCHC (32.0-37.0) g/dL RDW (11.5-14.5) % Plt Count (140-440) X 10*3/uL Plt Count Comment Potassium (3.5-5.5) mmol/L Anion Gap (10.00-18.00) mmol/L BUN (9.0-27.0) mg/dL Creatinine (0.6-1.5) mg/dL Est GFR (CKD-EPI)AfAm (60.0-200.0) Est GFR (CKD-EPI)NonAf (60.0-200.0) BUN/Creatinine Ratio (12.00-20.00) Ratio POC Glucose (mg/dL) 107 H (75-99) mg/dL Hemoglobin A1c 9.8 H (0.0-6.0) % Calcium (8.7-10.3) mg/dL ALT (8-44) U/L Total Protein (6.2-8.2) g/dL Albumin (3.8-4.9) g/dL Globulin (1.6-3.3) g/dL Albumin/Globulin Ratio (1.60-3.17) g/dL HDL Cholesterol 31.70 L (40.00-60.00) mg/dL 12/11/21 12/11/21 12/11/21 Range/Units 06:33 06:33 11:24 RBC 4.04 L (4.10-5.20) X 10*6/uL Hgb 10.5 L (12.0-15.0) g/dL Hct 33.4 L (37.2-46.3) % MCH 26.0 L (27.0-32.0) pg MCHC 31.4 L (32.0-37.0) g/dL RDW 17.0 H (11.5-14.5) % Plt Count 133 L (140-440) X 10*3/uL Plt Count Comment DECREASED A Potassium 3.0 L (3.5-5.5) mmol/L Anion Gap 9.80 L (10.00-18.00) mmol/L BUN 8.0 L (9.0-27.0) mg/dL Creatinine 4.0 H (0.6-1.5) mg/dL Est GFR (CKD-EPI)AfAm 14.5 L (60.0-200.0) Est GFR (CKD-EPI)NonAf 12.5 L (60.0-200.0) BUN/Creatinine Ratio 2.01 L (12.00-20.00) Ratio POC Glucose (mg/dL) 62 L (75-99) mg/dL Hemoglobin A1c (0.0-6.0) % Calcium 7.7 L (8.7-10.3) mg/dL ALT 7 L (8-44) U/L Total Protein 5.5 L (6.2-8.2) g/dL Albumin 1.9 L (3.8-4.9) g/dL Globulin 3.6 H (1.6-3.3) g/dL Albumin/Globulin Ratio 0.54 L (1.60-3.17) g/dL HDL Cholesterol (40.00-60.00) mg/dL 12/11/21 12/11/21 12/11/21 Range/Units 12:03 14:44 16:37 RBC (4.10-5.20) X 10*6/uL Hgb (12.0-15.0) g/dL Hct (37.2-46.3) % MCH (27.0-32.0) pg MCHC (32.0-37.0) g/dL RDW (11.5-14.5) % Plt Count (140-440) X 10*3/uL Plt Count Comment Potassium (3.5-5.5) mmol/L Anion Gap (10.00-18.00) mmol/L BUN (9.0-27.0) mg/dL Creatinine (0.6-1.5) mg/dL Est GFR (CKD-EPI)AfAm (60.0-200.0) Est GFR (CKD-EPI)NonAf (60.0-200.0) BUN/Creatinine Ratio (12.00-20.00) Ratio POC Glucose (mg/dL) 52 L 144 H 131 H (75-99) mg/dL Hemoglobin A1c (0.0-6.0) % Calcium (8.7-10.3) mg/dL ALT (8-44) U/L Total Protein (6.2-8.2) g/dL Albumin (3.8-4.9) g/dL Globulin (1.6-3.3) g/dL Albumin/Globulin Ratio (1.60-3.17) g/dL HDL Cholesterol (40.00-60.00) mg/dL Microbiology - Last 24 Hours (Table) 12/09/21 15:52 Stool Culture - Preliminary Stool Assessment and Plan Assessment: 1. End-stage renal disease on hemodialysis on a Wednesday schedule via a left IJ permacath 2. Hypotension from volume loss from diarrhea, currently maintained on IV fluids. Blood pressure runs low as outpatient. Patient usually has her pressure around 90-80 mmHg systolic at dialysis 3. Diarrhea rule out C. diff colitis, CT of the abdomen shows changes suggestive of colitis. C. diff toxin is negative 4. CK D mineral bone disorder 5. Hypokalemia we will replace. Patient is not able to tolerate oral suppleme nts. She complained of significant burning with IV POTASSIUM We will replace the potassium with dialysis in a.m. Plan: Replace potassium with hemodialysis in a.m. Try to decrease IV fluids Agree with increasing midodrine. Check cortisol
[2021-12-11] MEDS: DULoxetine HCL 60 MG CAPSULE.DR PO SCH (19:54)
[2021-12-11] MEDS: ATORVASTATIN 40 MG TAB PO SCH (19:54)
[2021-12-11] MEDS: DOXEPIN 25 MG CAP PO SCH (19:54)
[2021-12-11] MEDS: INSULIN DETEMIR (LEVEMIR) 100 UNIT/ML SYR SQ SCH (19:55)
[2021-12-11 20:44] LABS: Glucose,Whole Blood 163 mg/dL (75-99)
[2021-12-12 03:21] LABS: Glucose,Whole Blood 176 mg/dL (75-99)
[2021-12-12] MEDS: MIDODRINE 5 MG TAB PO PRN (03:42)
--- NOTE | 2021-12-12 04:44 | PN ---
PROGRESS NOTE There is two problems with the patient today. She has been remaining severely hypotensive, 80s to 90s systolic into the 70s systolic. We will hold her amlodipine due to this, and start Midodrine 10 mg t.i.d. Hold amlodipine and will continue low- dose propranolol at this time. Also low blood sugars for which we will hold the Levemir at night and continue with just Accu-Chek protocol. She states she is feeling good. She is not dizzy. Cardiovascular S1-S2. Lungs clear. GI is soft. ASSESSMENT: 1. End-stage renal disease. 2. Hyperkalemia. 3. Hypotension. 4. Hypoglycemia. Hold Levemir. Hold amlodipine. Monitor blood pressure and sugars. As far as advanced diet per GI recommendations for colitis of the abdomen. MMODL / IJN: [id number] /
[2021-12-12 07:28] LABS: Glucose,Whole Blood 129 mg/dL (75-99)
[2021-12-12] MEDS: SODIUM CHLORIDE 0.9% 1,000 ML IV SCH ×2 (07:28→12:11)
[2021-12-12] MEDS: MIDODRINE 5 MG TAB PO SCH ×3 (07:32→16:37)
[2021-12-12] MEDS: CLOPIDOGREL 75 MG TAB PO SCH (08:44)
[2021-12-12] MEDS: HEPARIN SODIUM,PORCINE/PF 5,000 UNIT/0.5 ML SYRINGE SQ SCH ×2 (08:44→21:12)
[2021-12-12] MEDS: PROPRANOLOL 20 MG TAB PO SCH (08:44)
[2021-12-12] MEDS: FOLIC ACID-VIT B COMPLEX-VIT C 1 CAP PO SCH ×2 (08:44→08:56)
[2021-12-12] MEDS: ARIPiprazole 2 MG TAB PO SCH (08:45)
--- NOTE | 2021-12-12 09:42 | P.PN ---
Subjective Patient is seen in follow-up for end-stage renal disease. She is maintained on hemodialysis on Wednesday schedule. Abdominal pain and diarrhea both improved. Blood pressure on the lower side. She has received IV fluids this admission. Vital signs are stable. Blood pressure on the lower side. General: The patient appeared well nourished and normally developed. HEENT: Head exam is unremarkable. Neck is without jugular venous distension. LUNGS: Breath sounds decreased. HEART: Rate and Rhythm are regular. ABDOMEN: Soft, no distention. EXTREMITITES: Bilateral BKA is noted. Objective - Vital Signs Vital signs: Vital Signs Temp 97.6 F 12/12/21 07:21 Pulse 76 12/12/21 07:21 Resp 18 12/12/21 07:21 BP 79/57 12/12/21 07:21 Pulse Ox 99 12/12/21 07:21 Intake & Output 12/11/21 12/12/21 12/12/21 18:59 06:59 18:59 Intake Total 280 Output Total 0 Balance 280 Weight 99.5 kg Intake: Intake, IV Titration 280 Amount Sodium Chloride 0.9% 1, 280 000 ml @ 70 mls/hr IV . [id number] [facility] Rx#:[id number] Output: Urine 0 Other: Voiding Method Diaper Diaper # Voids 0 0 - Labs CBC & Chem 7: 12/11/21 06:33 12/11/21 06:33 Labs: Abnormal Lab Results - Last 24 Hours (Table) 12/11/21 12/11/21 12/11/21 Range/Units 06:33 06:33 11:24 RBC 4.04 L (4.10-5.20) X 10*6/uL Hgb 10.5 L (12.0-15.0) g/dL Hct 33.4 L (37.2-46.3) % MCH 26.0 L (27.0-32.0) pg MCHC 31.4 L (32.0-37.0) g/dL RDW 17.0 H (11.5-14.5) % Plt Count 133 L (140-440) X 10*3/uL Plt Count Comment DECREASED A Potassium 3.0 L (3.5-5.5) mmol/L Anion Gap 9.80 L (10.00-18.00) mmol/L BUN 8.0 L (9.0-27.0) mg/dL Creatinine 4.0 H (0.6-1.5) mg/dL Est GFR (CKD-EPI)AfAm 14.5 L (60.0-200.0) Est GFR (CKD-EPI)NonAf 12.5 L (60.0-200.0) BUN/Creatinine Ratio 2.01 L (12.00-20.00) Ratio POC Glucose (mg/dL) 62 L (75-99) mg/dL Calcium 7.7 L (8.7-10.3) mg/dL ALT 7 L (8-44) U/L Total Protein 5.5 L (6.2-8.2) g/dL Albumin 1.9 L (3.8-4.9) g/dL Globulin 3.6 H (1.6-3.3) g/dL Albumin/Globulin Ratio 0.54 L (1.60-3.17) g/dL 12/11/21 12/11/21 12/11/21 Range/Units 12:03 14:44 16:37 RBC (4.10-5.20) X 10*6/uL Hgb (12.0-15.0) g/dL Hct (37.2-46.3) % MCH (27.0-32.0) pg MCHC (32.0-37.0) g/dL RDW (11.5-14.5) % Plt Count (140-440) X 10*3/uL Plt Count Comment Potassium (3.5-5.5) mmol/L Anion Gap (10.00-18.00) mmol/L BUN (9.0-27.0) mg/dL Creatinine (0.6-1.5) mg/dL Est GFR (CKD-EPI)AfAm (60.0-200.0) Est GFR (CKD-EPI)NonAf (60.0-200.0) BUN/Creatinine Ratio (12.00-20.00) Ratio POC Glucose (mg/dL) 52 L 144 H 131 H (75-99) mg/dL Calcium (8.7-10.3) mg/dL ALT (8-44) U/L Total Protein (6.2-8.2) g/dL Albumin (3.8-4.9) g/dL Globulin (1.6-3.3) g/dL Albumin/Globulin Ratio (1.60-3.17) g/dL 12/11/21 12/12/21 12/12/21 Range/Units 20:43 03:18 07:25 RBC (4.10-5.20) X 10*6/uL Hgb (12.0-15.0) g/dL Hct (37.2-46.3) % MCH (27.0-32.0) pg MCHC (32.0-37.0) g/dL RDW (11.5-14.5) % Plt Count (140-440) X 10*3/uL Plt Count Comment Potassium (3.5-5.5) mmol/L Anion Gap (10.00-18.00) mmol/L BUN (9.0-27.0) mg/dL Creatinine (0.6-1.5) mg/dL Est GFR (CKD-EPI)AfAm (60.0-200.0) Est GFR (CKD-EPI)NonAf (60.0-200.0) BUN/Creatinine Ratio (12.00-20.00) Ratio POC Glucose (mg/dL) 163 H 176 H 129 H (75-99) mg/dL Calcium (8.7-10.3) mg/dL ALT (8-44) U/L Total Protein (6.2-8.2) g/dL Albumin (3.8-4.9) g/dL Globulin (1.6-3.3) g/dL Albumin/Globulin Ratio (1.60-3.17) g/dL Microbiology - Last 24 Hours (Table) 12/09/21 15:52 Stool Culture - Preliminary Stool Assessment and Plan Plan: Assessment: 1. End-stage renal disease maintained on hemodialysis on Wednesday schedule via permacath. 2. Hypotension from hypovolemia. Also on midodrine. 3. Diarrhea. Improved. C. diff negative. Colitis noted on CT. 4. Chronic kidney disease mineral bone disease. Phosphorous initially low then 3.5 dated 12/10/2021. 5. Hypokalemia from poor intake. Replaced. Plan: Hemodialysis today. Maintain midodrine. Follow-up cortisol level. Hold propranolol for systolic blood pressure less than 100.
[2021-12-12 09:55] LABS: ALT 9 U/L (4-34); AST 25 U/L (14-36); African American GFR (CKD) 11 (>60 ml/min/1.73 sqM); Albumin 2.1 g/dL (3.5-5.0); Albumin/Globulin Ratio 0.6; Alkaline Phosphatase 162 U/L (38-126); Anion Gap 7 mmol/L; Blood Urea Nitrogen 13 mg/dL (7-17); Calcium 7.8 mg/dL (8.4-10.2); Carbon Dioxide 21 mmol/L (22-30); Chloride 104 mmol/L (98-107); Globulin 3.7 g/dL; Glucose 161 mg/dL (74-99); Non-African American GFR(CKD) 10 (>60 ml/min/1.73 sqM); Potassium 3.4 mmol/L (3.5-5.1); Sodium 132 mmol/L (137-145); Total Bilirubin 0.6 mg/dL (0.2-1.3); Total Protein 5.8 g/dL (6.3-8.2)
[2021-12-12 11:09] LABS: Glucose,Whole Blood 134 mg/dL (75-99)
[2021-12-12] MEDS ORDERED: POTASSIUM BICARBONATE/CIT AC 20 MEQ TABLET.EFF PO ONE (14:00)
[2021-12-12] MEDS: LORazepam 2 MG/ML INJ IV PRN ×2 (14:36→23:16)
[2021-12-12 14:50] LABS: Basophils # (A) 0.07 X 10*3/uL (0.00-0.10); Eosinophils # (A) 0.36 X 10*3/uL (0.04-0.35); Eosinophils % (A) 5.2 %; HCT 36.7 % (37.2-46.3); Lymphocytes # (A) 3.57 X 10*3/uL (0.90-5.00); Lymphocytes % (A) 51.7 %; MCH 25.7 pg (27.0-32.0); MCV 85.7 fL (80.0-97.0); Mean Platelet Volume 11.3 fL (9.5-12.2); Monocytes # (A) 0.45 X 10*3/uL (0.20-1.00); Monocytes % (A) 6.5 %; NRBC Per 100 WBC 0 /100 WBCS (0.0-0.0); Neutrophils # (A) 2.39 X 10*3/uL (1.80-7.70); Neutrophils % (A) 34.6 %; Platelet Count 150 X 10*3/uL (140-440); RBC 4.28 X 10*6/uL (4.10-5.20); RDW 17.6 % (11.5-14.5); WBC 6.91 X 10*3/uL (4.50-10.00)
--- NOTE | 2021-12-12 16:19 | P.PN ---
Subjective Progress Note Date: 12/12/21 Principal diagnosis: Abdominal pain 46-year-old female with multiple comorbidities who presented to the emergency department for complaints of abdominal pain. CT of the abdomen showed possible mild colitis. Patient states she's had no diarrhea today. Abdominal pain is significantly improved. She is undergoing hemodialysis today. Denies any nausea or vomiting. She is tolerating her diet. However she has had more but decreased appetite. Objective - Vital Signs Vital signs: Vital Signs Temp 97.6 F 12/12/21 07:21 Pulse 76 12/12/21 07:21 Resp 18 12/12/21 07:21 BP 79/57 12/12/21 07:21 Pulse Ox 99 12/12/21 07:21 Intake & Output 12/11/21 12/12/21 12/12/21 18:59 06:59 18:59 Intake Total 280 Output Total 0 Balance 280 Weight 99.5 kg Intake: Intake, IV Titration 280 Amount Sodium Chloride 0.9% 1, 280 000 ml @ 70 mls/hr IV . [id number] [facility] Rx#:[id number] Output: Urine 0 Other: Voiding Method Diaper Diaper # Voids 0 0 - Exam General appearance: The patient is alert, oriented, appears in no acute distress. HET: Head is normocephalic and atraumatic. Conjunctiva pink. Sclera anicteric. Neck: Supple without lymphadenopathy. Abdomen: Soft, mild tenderness in the left lower quadrant, nondistended with bowel sounds. No guarding or rigidity. Extremities: Normal skin color and turgor. No pedal edema Skin: No rashes, no jaundice Neurological: No focal deficits. Alert and oriented -3. - Labs CBC & Chem 7: 12/12/21 08:44 12/12/21 08:44 Labs: Abnormal Lab Results - Last 24 Hours (Table) 12/11/21 12/11/21 12/11/21 Range/Units 06:33 06:33 11:24 RBC 4.04 L (4.10-5.20) X 10*6/uL Hgb 10.5 L (12.0-15.0) g/dL Hct 33.4 L (37.2-46.3) % MCH 26.0 L (27.0-32.0) pg MCHC 31.4 L (32.0-37.0) g/dL RDW 17.0 H (11.5-14.5) % Plt Count 133 L (140-440) X 10*3/uL Plt Count Comment DECREASED A Potassium 3.0 L (3.5-5.5) mmol/L Anion Gap 9.80 L (10.00-18.00) mmol/L BUN 8.0 L (9.0-27.0) mg/dL Creatinine 4.0 H (0.6-1.5) mg/dL Est GFR (CKD-EPI)AfAm 14.5 L (60.0-200.0) Est GFR (CKD-EPI)NonAf 12.5 L (60.0-200.0) BUN/Creatinine Ratio 2.01 L (12.00-20.00) Ratio POC Glucose (mg/dL) 62 L (75-99) mg/dL Calcium 7.7 L (8.7-10.3) mg/dL ALT 7 L (8-44) U/L Total Protein 5.5 L (6.2-8.2) g/dL Albumin 1.9 L (3.8-4.9) g/dL Globulin 3.6 H (1.6-3.3) g/dL Albumin/Globulin Ratio 0.54 L (1.60-3.17) g/dL 12/11/21 12/11/21 12/11/21 Range/Units 12:03 14:44 16:37 RBC (4.10-5.20) X 10*6/uL Hgb (12.0-15.0) g/dL Hct (37.2-46.3) % MCH (27.0-32.0) pg MCHC (32.0-37.0) g/dL RDW (11.5-14.5) % Plt Count (140-440) X 10*3/uL Plt Count Comment Potassium (3.5-5.5) mmol/L Anion Gap (10.00-18.00) mmol/L BUN (9.0-27.0) mg/dL Creatinine (0.6-1.5) mg/dL Est GFR (CKD-EPI)AfAm (60.0-200.0) Est GFR (CKD-EPI)NonAf (60.0-200.0) BUN/Creatinine Ratio (12.00-20.00) Ratio POC Glucose (mg/dL) 52 L 144 H 131 H (75-99) mg/dL Calcium (8.7-10.3) mg/dL ALT (8-44) U/L Total Protein (6.2-8.2) g/dL Albumin (3.8-4.9) g/dL Globulin (1.6-3.3) g/dL Albumin/Globulin Ratio (1.60-3.17) g/dL 12/11/21 12/12/21 12/12/21 Range/Units 20:43 03:18 07:25 RBC (4.10-5.20) X 10*6/uL Hgb (12.0-15.0) g/dL Hct (37.2-46.3) % MCH (27.0-32.0) pg MCHC (32.0-37.0) g/dL RDW (11.5-14.5) % Plt Count (140-440) X 10*3/uL Plt Count Comment Potassium (3.5-5.5) mmol/L Anion Gap (10.00-18.00) mmol/L BUN (9.0-27.0) mg/dL Creatinine (0.6-1.5) mg/dL Est GFR (CKD-EPI)AfAm (60.0-200.0) Est GFR (CKD-EPI)NonAf (60.0-200.0) BUN/Creatinine Ratio (12.00-20.00) Ratio POC Glucose (mg/dL) 163 H 176 H 129 H (75-99) mg/dL Calcium (8.7-10.3) mg/dL ALT (8-44) U/L Total Protein (6.2-8.2) g/dL Albumin (3.8-4.9) g/dL Globulin (1.6-3.3) g/dL Albumin/Globulin Ratio (1.60-3.17) g/dL Microbiology - Last 24 Hours (Table) 12/09/21 15:52 Stool Culture - Preliminary Stool Assessment and Plan (1) Colitis Narrative/Plan: 46-year-old with multiple comorbidities presented to the emergency department with complaints of abdominal pain with associated diarrhea 2 weeks duration. She denies any blood in her stool. States it's been loose and watery up to 3-4 times a day. She's had no bowel movement since she's been in the hospital. Stool studies have been ordered but are collected due to the above reason. She states she's had similar symptoms in the past and had a colonoscopy 3-4 years ag o report not available at this time. She states it was normal findings. She denies any previous history of irritable bowel disease or inflammatory bowel disease. She denies any fevers or chills, no recent traveling. She had a CT of the abdomen and pelvis that showed nonspecific pancolitis. Possible etiologies include infectious versus ischemic. Will await stool cultures this patient has no evidence of leukocytosis or fever. In terms are improving. Patient is tolerating her diet. She is afebrile. Current Visit: Yes Status: Acute Code(s): K52.9 - NONINFECTIVE GASTROENTERITIS AND COLITIS, UNSPECIFIED SNOMED Code(s): 12192118 Plan: 1. Continue symptomatic and supportive care 2. Diet as tolerated 3. Protonix 40 mg daily 4. Stool studies negative to date 5. No plans on endoscopic evaluation 6. Imodium as needed 7. Dicyclomine as needed Thank you for this consultation, patient is cleared from gastroenterology for discharge. We will sign off at this time as there is no weekend coverage. Dr. Brittni Livingston I agree with the dictator's note, documented as a scribe by Maria E Barrett.
[2021-12-12 16:55] LABS: Glucose,Whole Blood 139 mg/dL (75-99)
[2021-12-12] MEDS ORDERED: methylPREDNISolone SOD SUCCI 125 MG/2 ML VIAL IV STA (17:13)
--- NOTE | 2021-12-12 18:09 | PN ---
PROGRESS NOTE -[place] female with end-stage renal disease, admitted for hypokalemia and severe colitis. GI doctor has been seeing her. Her potassium is better today at 3.4. Sodium 132, creatinine 4.86. She has had orthostatic hypotension, severe hypotension. Both her blood pressure medicines are on hold. She is saturating on 2 L 99%. Blood pressure is still in the 60s to 90s systolic. Temperature 97.2, pulse 60-70, respiratory rate 18-20. ASSESSMENT: 1. Severe orthostatic hypotension, worse than normal. She normally has hypotension. Will monitor her for difficulty with her dialysis. Increase her midodrine. Replace potassium for hypokalemia and increase her oral intake, as she is hypotensive from hypovolemia. Diarrhea has improved. C difficile is negative. Colitis on CT scan. 2. Chronic kidney disease. 3. Mineral bone disease. Replace potassium. Maintain midodrine. Follow up cortisol level. Continue and increase appetite. MMODL / IJN: [id number] /
[2021-12-12] MEDS: MORPHINE SULFATE 2 MG/ML SYRINGE IVP PRN (19:50)
[2021-12-12 21:08] LABS: Glucose,Whole Blood 214 mg/dL (75-99)
[2021-12-12] MEDS: DOXEPIN 25 MG CAP PO SCH (21:09)
[2021-12-12] MEDS: DULoxetine HCL 60 MG CAPSULE.DR PO SCH (21:09)
[2021-12-12] MEDS: ATORVASTATIN 40 MG TAB PO SCH (21:09)
[2021-12-12] MEDS: HYDROCORTISONE 10 MG TAB PO SCH (21:09)
[2021-12-13] MEDS: MORPHINE SULFATE 2 MG/ML SYRINGE IVP PRN (01:50)
[2021-12-13 02:02] LABS: Glucose,Whole Blood 426 mg/dL (75-99)
[2021-12-13] MEDS ORDERED: INSULIN REGULAR 100 UNIT/ML VIAL (IM/SQ) SQ ONE (02:12)
[2021-12-13] MEDS: INSULIN ASPART (NovoLOG) 100 UNIT/ML VIAL SQ SCH ×6 (02:14→20:39)
[2021-12-13] MEDS: INSULIN DETEMIR (LEVEMIR) 100 UNIT/ML SYR SQ SCH ×2 (02:45→20:38)
[2021-12-13] MEDS: SODIUM CHLORIDE 0.9% 1,000 ML IV SCH ×2 (06:02→17:16)
[2021-12-13 07:18] LABS: Glucose,Whole Blood 462 mg/dL (75-99)
[2021-12-13] MEDS: CLOPIDOGREL 75 MG TAB PO SCH (09:06)
[2021-12-13] MEDS: HEPARIN SODIUM,PORCINE/PF 5,000 UNIT/0.5 ML SYRINGE SQ SCH ×2 (09:06→20:39)
[2021-12-13] MEDS: FOLIC ACID-VIT B COMPLEX-VIT C 1 CAP PO SCH (09:06)
[2021-12-13] MEDS: ARIPiprazole 2 MG TAB PO SCH (09:06)
[2021-12-13] MEDS: MIDODRINE 5 MG TAB PO SCH ×3 (09:06→17:14)
[2021-12-13] MEDS: HYDROCORTISONE 10 MG TAB PO SCH ×2 (09:06→21:51)
[2021-12-13 11:35] LABS: Glucose,Whole Blood 374 mg/dL (75-99)
--- NOTE | 2021-12-13 14:54 | P.PN ---
Subjective Progress Note Date: 12/13/21 Follow-up for ESRD. Had dialysis yesterday, tolerated well Objective - Vital Signs Vital signs: Vital Signs Temp 98.7 F 12/13/21 14:00 Pulse 78 12/13/21 14:00 Resp 18 12/13/21 14:00 BP 138/78 12/13/21 14:00 Pulse Ox 100 12/13/21 14:00 Intake & Output 12/12/21 12/13/21 12/13/21 18:59 06:59 18:59 Intake Total 700 Output Total 700 Balance 0 Intake: IV 700 Sodium Chloride 0.9% 1, 700 000 ml @ 70 mls/hr IV . [id number] [facility] Rx#:[id number] Output: Hemodialysis 700 Other: Voiding Method Diaper Diaper Diaper # Voids 0 # Bowel Movements 0 - Exam No acute distress S1-S2 heard Decreased breath sounds Edema Right jugular permacath - Labs CBC & Chem 7: 12/12/21 08:44 12/12/21 08:44 Labs: Abnormal Lab Results - Last 24 Hours (Table) 12/12/21 12/12/21 12/13/21 Range/Units 16:52 21:06 01:32 POC Glucose (mg/dL) 139 H 214 H 426 H (75-99) mg/dL 12/13/21 12/13/21 Range/Units 07:16 11:33 POC Glucose (mg/dL) 462 H 374 H (75-99) mg/dL Microbiology - Last 24 Hours (Table) 12/09/21 15:52 Stool Culture - Final Stool Assessment and Plan Assessment: #1 ESRD on hemodialysis, MWF schedule #2 hypotension on midodrine #3 diarrhea C. diff negative, colitis on CT Plan: #1 hemodialysis MWF schedule #2 ESRD medications
[2021-12-13 16:34] LABS: Glucose,Whole Blood 165 mg/dL (75-99)
[2021-12-13 20:15] LABS: Glucose,Whole Blood 173 mg/dL (75-99)
[2021-12-13] MEDS: LORazepam 2 MG/ML INJ IV PRN (20:38)
[2021-12-13] MEDS: DOXEPIN 25 MG CAP PO SCH (21:51)
[2021-12-13] MEDS: ATORVASTATIN 40 MG TAB PO SCH (21:51)
[2021-12-13] MEDS: DULoxetine HCL 60 MG CAPSULE.DR PO SCH (21:51)
[2021-12-13] MEDS: ONDANSETRON 4 MG/2 ML VIAL IVP PRN (22:56)
--- NOTE | 2021-12-13 23:47 | PN ---
PROGRESS NOTE This 46-year-old -[place] female was started on Solu-Medrol and Cortef for adrenal insufficiency due to severe hypotension. Blood pressure is now in the 120s to 130s over 70s to 60s. Waiting for a rehab bed over at [facility], where the patient wants to go. Continue with Accu-Chek protocol. Treat for adrenal insufficiency. GI contraction and colitis is all improved. She is on a regular diet at this point. Possible discharge Wednesday to . MMANGIL / IJN: [id number] /
[2021-12-14] MEDS: MORPHINE SULFATE 2 MG/ML SYRINGE IVP PRN (02:12)
[2021-12-14 03:08] LABS: Glucose,Whole Blood 285 mg/dL (75-99)
[2021-12-14 06:54] LABS: Glucose,Whole Blood 321 mg/dL (75-99)
[2021-12-14] MEDS: SODIUM CHLORIDE 0.9% 1,000 ML IV SCH (07:52)
[2021-12-14] MEDS: CLOPIDOGREL 75 MG TAB PO SCH (08:10)
[2021-12-14] MEDS: HYDROCORTISONE 10 MG TAB PO SCH ×2 (08:10→21:47)
[2021-12-14] MEDS: MIDODRINE 5 MG TAB PO SCH ×3 (08:10→17:06)
[2021-12-14] MEDS: FOLIC ACID-VIT B COMPLEX-VIT C 1 CAP PO SCH (08:10)
[2021-12-14] MEDS: ARIPiprazole 2 MG TAB PO SCH (08:10)
[2021-12-14] MEDS: INSULIN ASPART (NovoLOG) 100 UNIT/ML VIAL SQ SCH ×5 (08:10→22:01)
[2021-12-14] MEDS: HEPARIN SODIUM,PORCINE/PF 5,000 UNIT/0.5 ML SYRINGE SQ SCH ×2 (08:10→21:47)
[2021-12-14 11:31] LABS: Glucose,Whole Blood 227 mg/dL (75-99)
[2021-12-14] MEDS: ACETAMINOPHEN TAB 325 MG TAB PO PRN ×2 (12:04→21:48)
[2021-12-14] MEDS: LORazepam 2 MG/ML INJ IV PRN ×2 (14:06→22:01)
--- NOTE | 2021-12-14 14:08 | P.PN ---
Subjective Progress Note Date: 12/14/21 Follow-up for ESRD. Objective - Vital Signs Vital signs: Vital Signs Temp 98.6 F 12/14/21 07:17 Pulse 86 12/14/21 07:17 Resp 17 12/14/21 08:00 BP 119/65 12/14/21 07:17 Pulse Ox 100 12/14/21 07:17 Intake & Output 12/13/21 12/14/21 12/14/21 18:59 06:59 18:59 Intake Total 480 Balance 480 Intake: Oral 480 Other: Voiding Method Diaper Diaper Diaper # Voids 0 # Bowel Movements 0 - Exam Sleeping today. Right jugular permacath - Labs CBC & Chem 7: 12/12/21 08:44 12/12/21 08:44 Labs: Abnormal Lab Results - Last 24 Hours (Table) 12/13/21 12/13/21 12/14/21 Range/Units 16:32 20:13 03:06 POC Glucose (mg/dL) 165 H 173 H 285 H (75-99) mg/dL 12/14/21 12/14/21 Range/Units 06:52 11:27 POC Glucose (mg/dL) 321 H 227 H (75-99) mg/dL Assessment and Plan Assessment: #1 ESRD on hemodialysis, MWF schedule #2 hypotension on midodrine #3 diarrhea C. diff negative, colitis on CT Plan: #1 hemodialysis MWF schedule #2 ESRD medications
[2021-12-14 16:26] LABS: Glucose,Whole Blood 195 mg/dL (75-99)
[2021-12-14 21:16] LABS: Glucose,Whole Blood 193 mg/dL (75-99)
[2021-12-14] MEDS: ATORVASTATIN 40 MG TAB PO SCH (21:47)
[2021-12-14] MEDS: DOXEPIN 25 MG CAP PO SCH (21:47)
[2021-12-14] MEDS: INSULIN DETEMIR (LEVEMIR) 100 UNIT/ML SYR SQ SCH (21:47)
[2021-12-14] MEDS: DULoxetine HCL 60 MG CAPSULE.DR PO SCH (21:47)
[2021-12-15 03:36] LABS: Glucose,Whole Blood 224 mg/dL (75-99)
[2021-12-15] MEDS: SODIUM CHLORIDE 0.9% 1,000 ML IV SCH ×2 (04:11→12:44)
[2021-12-15 07:19] LABS: Glucose,Whole Blood 222 mg/dL (75-99)
[2021-12-15] MEDS: INSULIN ASPART (NovoLOG) 100 UNIT/ML VIAL SQ SCH ×2 (07:46→12:43)
[2021-12-15] MEDS: MIDODRINE 5 MG TAB PO SCH ×2 (07:48→12:43)
[2021-12-15] MEDS: CLOPIDOGREL 75 MG TAB PO SCH (07:48)
[2021-12-15] MEDS: HYDROCORTISONE 10 MG TAB PO SCH (07:48)
[2021-12-15] MEDS: ARIPiprazole 2 MG TAB PO SCH (07:48)
[2021-12-15] MEDS: FOLIC ACID-VIT B COMPLEX-VIT C 1 CAP PO SCH (07:50)
[2021-12-15] MEDS: HEPARIN SODIUM,PORCINE/PF 5,000 UNIT/0.5 ML SYRINGE SQ SCH (07:51)
--- NOTE | 2021-12-15 09:24 | P.PN ---
Subjective Patient is seen in follow-up for end-stage renal disease. She is maintained on hemodialysis on Wednesday schedule. Feels better. No active complaints. Blood pressure stable. Tolerating dialysis well. Vital signs are stable. General: The patient appeared well nourished and normally developed. HEENT: Head exam is unremarkable. LUNGS: Breath sounds decreased. HEART: Rate and Rhythm are regular. ABDOMEN: Soft, no distention. EXTREMITITES: Bilateral BKA is noted. Objective - Vital Signs Vital signs: Vital Signs Temp 97.7 F 12/15/21 08:00 Pulse 77 12/15/21 08:00 Resp 16 12/15/21 08:00 BP 99/66 12/15/21 08:00 Pulse Ox 96 12/15/21 08:00 Intake & Output 12/14/21 12/15/21 12/15/21 18:59 06:59 18:59 Intake Total 480 480 Balance 480 480 Intake: Oral 480 480 Other: Voiding Method Diaper Diaper # Voids 0 # Bowel Movements 0 - Labs CBC & Chem 7: 12/12/21 08:44 12/12/21 08:44 Labs: Abnormal Lab Results - Last 24 Hours (Table) 12/14/21 12/14/21 12/14/21 Range/Units 11:27 16:24 21:15 POC Glucose (mg/dL) 227 H 195 H 193 H (75-99) mg/dL 12/15/21 12/15/21 Range/Units 03:35 07:17 POC Glucose (mg/dL) 224 H 222 H (75-99) mg/dL Microbiology - Last 24 Hours (Table) 12/09/21 15:52 Stool Culture - Final Stool Assessment and Plan Plan: Assessment: 1. End-stage renal disease maintained on hemodialysis on Wednesday schedule via permacath. 2. Hypotension from hypovolemia. Also on midodrine. Better. Cortisol level slightly low. On Cortef. 3. Diarrhea. Improved. C. diff negative. Colitis noted on CT. 4. Chronic kidney disease mineral bone disease. Phosphorous initially low then 3.5 dated 12/10/2021. 5. Hypokalemia from poor intake. Replaced. Plan: Currently seen while undergoing hemodialysis. Maintain midodrine. Will need to see endocrinology outpatient for further workup for adrenal insufficiency.
[2021-12-15] MEDS ORDERED: diphenhydrAMINE 25 MG CAP PO STA ×2 (10:12→10:18)
[2021-12-15 11:41] LABS: Glucose,Whole Blood 154 mg/dL (75-99)
--- NOTE | 2021-12-15 13:37 | DS ---
DISCHARGE SUMMARY DATE OF DISCHARGE: 12/15/2021 DISCHARGE DIAGNOSIS: 1. Chronic renal failure. 2. Acute colitis. 3. Dehydration. 4. Hypokalemia. 5. End-stage renal failure. 6. Acute adrenal insufficiency causing hypotension. MEDICATIONS: As mentioned in the list. Condition stable. Prognosis guarded. Ambulate as tolerated. She also has a history of insulin-dependent diabetes mellitus with systolic ension, dry gangrene, irritable bowel syndrome. Medications include: 1. Cortef 10 b.i.d. 2. Accu-Chek protocol before meals and at bedtime. 3. Midodrine 10 mg before meals t.i.d. 4. 20 mg q.i.d. 5. Levemir 18 units subcutaneously daily. 6. Plavix 75 mg daily. 7. Lipitor 40 mg daily. 8. daily. 9. Cymbalta 60 daily. 10.Doxepin 50 mg at night. 11.Propranolol 50 b.i.d. 12.Ativan 1 mg b.i.d. p.r.n. 13.Abilify 2 mg at night. HOSPITAL COURSE OF EVENTS: She was admitted with hypokalemia, acute colitis. Diet was fully advanced. Electrolytes were replaced. She had orthostatic hypotension and severe hypotension due to adrenal insufficiency. She had a low cortisol level. Started her on Cortef 10 b.i.d. She will have to continue long-term. Midodrine for orthostatic hypotension with dialysis. Potassium was given for electrolyte abnormalities. The patient was stabilized, cleared for discharge by multiple specialists. Upon discharge, follow up with Dr. Reynolds at the longterm. Diet will be a renal diet. MMODL / IJN: [id number] /
[2021-12-15 15:06] VITALS: BP 124/79; PULSE 86; RESP 16; TEMP 97.9
--- NOTE | 2021-12-17 06:41 | CDI ---
Documentation Clarification Form Date: 12/11/2021 01:26:00 PM From: Jennyfer Suarez CCS CDS Admit Date: 12/09/2021 01:50:00 PM Patient Name: Arelis Huynh Visit Number: [id number] Discharge Date: 12/15/2021 04:25:00 PM ATTENTION: The Clinical Documentation Specialists (CDI) and [facility] Coding Staff appreciate your assistance in clarifying documentation. Please respond to the clarification below the line at the bottom and electronically sign. The CDI & [facility] Coding staff will review the response and follow-up if needed. Please note: Queries are made part of the Legal Health Record. If you have any questions, please contact the author of this message via ITS. Dr. Allen Reynolds Anemia without further specification is documented in the patient's Past Medical History in the 12/08 ED Note and the 12/09 GI & Surgery Consults. Additional specificity regarding the Acuity & Type of Anemia is requested. History/Risk Factors per the 12/10 History & Physical: ESRD on Hemodialysis, Diabetes. Clinical indicators: Presented to the ED on 12/08 with Abdominal pain, Nausea, Anxiety, came from Dialysis [facility], has had diarrhea for 2 weeks, now vomiting. Patient was hypotensive as usual during & after dialysis. Admit with Nausea, Vomiting, Diarrhea, Colitis, Dehydration, Chronic Renal Failure and Hypotension. Hemoglobin 12/08: 12.8. 12/10: 10.1. 12/11: 10.5 Hematocrit 12/08: 40.0. 12/10: 31.3. 12/11: 33.4 Treatment 12/09: Blood glucose monitoring, Telemetry, Fall precautions, Insulin sliding scale, Stool culture, IV Zofran 4 mg x1, IV Zofran 4 mg q8H/prn, IV Tylenol 100 mls @ 400 mls/hr x1, IV Ativan 0.5 mg x1 and 1 mg x1, IV Na Cl 500 mls @ 999 mls/hr q31M, IV Na Cl 500 mls @ 999 mls/hr q31M, IV Na Cl 1,000 mls @ 70 mls/hr q14H, Heparin sq 5,000 units q12H, IV KCL 200 mls @ 100 mls/hr x1, IV Morphine 1-2 mg q4H/prn. Home meds: Midodrine, Inderal, Insulin sq, Oxycodone, Nephrovite, Zanaflex, Ativan, Cymbalta, Abilify, Doxepin, Norvasc, Plavix, Lipitor Please clarify the type and acuity of anemia if known: [ ] Chronic blood loss anemia [ ] Hemolytic anemia [ ] Drug induced anemia [ ] Nutritional anemia [ ] Anemia of chronic kidney disease [ ] Anemia of other chronic condition, please specify, if known: [ ] Unable to determine [ ] Other, please specify (Template Last Revised: November 2020) MTDD
--- NOTE | 2021-12-19 15:54 | PN ---
PROGRESS NOTE Anemia due to chronic kidney disease. MMODL / IJN: [id number] /
== END 2021-12-15 16:25 | DRG 391 ==
LOC: EC 19:46 → 4SSUR 12-09 03:33 → OBSVTOIN 12-09 13:50 → 4SSUR 12-10 14:07
PROVIDERS: ADMIT Family Medicine; ATTEND Family Medicine
PROC: 5A1D70Z Performance of Urinary Filtration, Intermittent, Less than 6 Hours Per Day (ICD-10-PCS; principal; 2021-12-10)
DX: K52.9 Noninfective gastroenteritis and colitis, unspecified (principal); N18.6 End stage renal disease; E27.40 Unspecified adrenocortical insufficiency; Z94.0 Kidney transplant status; I12.0 Hypertensive chronic kidney disease with stage 5 chronic kidney disease or end stage renal disease; E86.0 Dehydration; E11.22 Type 2 diabetes mellitus with diabetic chronic kidney disease; E11.649 Type 2 diabetes mellitus with hypoglycemia without coma; E78.5 Hyperlipidemia, unspecified; M89.8X9 Other specified disorders of bone, unspecified site; E86.1 Hypovolemia; D63.1 Anemia in chronic kidney disease; Z20.822 Contact with and (suspected) exposure to COVID-19; F41.9 Anxiety disorder, unspecified; E87.6 Hypokalemia; I95.1 Orthostatic hypotension; Z79.02 Long term (current) use of antithrombotics/antiplatelets; Z79.4 Long term (current) use of insulin; Z79.899 Other long term (current) drug therapy; Z89.511 Acquired absence of right leg below knee; Z89.512 Acquired absence of left leg below knee; Z89.022 Acquired absence of left finger(s); Z99.2 Dependence on renal dialysis; Z82.49 Family history of ischemic heart disease and other diseases of the circulatory system; Z83.2 Family history of diseases of the blood and blood-forming organs and certain disorders involving the immune mechanism; Z83.3 Family history of diabetes mellitus
CPT/HCPCS: 36415; 71045; 74176; 80053; 80061; 82272; 82533; 83036; 83605; 83630; 83690; 83735; 84100; 84443; 85025; 85610; 85730; 87045; 87046; 87324; 87635; 90935; 96365; 96375; 99291

== ENCOUNTER → 2022-01-09 | Outpatient (CLI) | payer MEDICARE, OTHER ==
--- NOTE | 2022-01-13 08:06 | MM ---
Reason for exam: clinical finding. Last mammogram was performed 7 years and 2 months ago. History: Patient is nulliparous. Family history of breast cancer in maternal aunt at age 50. Indicated problem(s): lump or thickening in the right breast. Physical Findings: A clinical breast exam by your physician is recommended on an annual basis and results should be correlated with mammographic findings. MG 3D Diag Mammo W/Cad TYLER Bilateral CC and MLO view(s) were taken. Prior study comparison: November 21, 2014, bilateral MG screening mammo w CAD. The breast tissue is heterogeneously dense. This may lower the sensitivity of mammography. Finding #1: There is a 14 mm obscured round mass in the upper quadrant, middle position of the right breast at papable. Finding #2: There are typically benign vascular calcifications in both breasts. ASSESSMENT: Incomplete: need additional imaging evaluation, BI-RAD 0 RECOMMENDATION: Ultrasound of the right breast.
--- NOTE | 2022-01-13 08:10 | USB ---
Reason for exam: additional evaluation requested from abnormal screening. History: Patient is nulliparous. Family history of breast cancer in maternal aunt at age 50. Physical Findings: A clinical breast exam by your physician is recommended on an annual basis and results should be correlated with mammographic findings. US Breast Limited RT Right limited breast ultrasound including focal area of concern, retroareolar and axilla demonstrates a 1.6 x 0.9 x 1.7cm oval, mixed, hyperechoic lesion at 12 o'clock palpable. ASSESSMENT: Suspicious, BI-RAD 4 RECOMMENDATION: Ultrasound core biopsy of the right breast. Called Dr. Keating's office with mammographic findings and office will follow up with patient. PRELIMINARY REPORT CALLED AND FAXED TO DR. KEATING ON 01/13/22.
== END | disposition home or self-care (01) ==
LOC: RADMAMWWP 13:48
PROVIDERS: ATTEND Family Medicine
DX: N63.20 Unspecified lump in the left breast, unspecified quadrant (principal); Z80.3 Family history of malignant neoplasm of breast
CPT/HCPCS: 77066; 76642; G0279; 77062

== ENCOUNTER → 2022-02-05 | Day surgery (SDC) | payer OTHER ==
--- NOTE | 2022-02-05 09:20 | USB ---
EXAMINATION TYPE: US biopsy breast VAD RT DATE OF EXAM: 02/05/2022 HISTORY: Right breast mass. FINDINGS: Maximal barrier technique was utilized. Hand hygiene achieved with soap and water and alcohol-based hand rub. The skin overlying a suitable path to the patient's mass in the right breast at the 12:00 position was localized with ultrasound and the overlying skin prepped and draped. Ultrasound was utilized with sterile technique. Lidocaine was used for local anesthesia. A skin lee was made with a scalpel. An 14-gauge needle was advanced under direct ultrasound guidance and core specimen obtained of the mass. Specimen submitted in formalin to Pathology. Following the procedure, hemostasis achieved and the patient is discharged in stable condition without complication. IMPRESSION:STATUS POST ULTRASOUND GUIDED CORE BIOPSY OF right breast MASS, PATHOLOGY IS PENDING. THIS PROCEDURE IS PERFORMED BY THE UNDERSIGNED. Pathology Results: Benign RIGHT BREAST, DESIGNATED "12:00", CORE BIOPSY: Fragment of fibroadipose tissue with fat necrosis. Clinical correlation with radiology/imaging findings is recommended, as indicated. Recommendation Follow up ultrasound of the right breast in 6 months. CATY
== END ==
LOC: RADUSWWP 08:23
PROVIDERS: ATTEND Surgery
DX: N64.1 Fat necrosis of breast (principal); R92.8 Other abnormal and inconclusive findings on diagnostic imaging of breast
CPT/HCPCS: 88305

== ENCOUNTER → 2022-08-04 | Outpatient (CLI) | payer OTHER, MEDICARE ==
--- NOTE | 2022-08-04 13:52 | MM ---
Reason for Exam: Follow-up at short interval from prior study. Last screening mammogram was performed 7 month(s) ago. Patient History: Menarche at age 10. Patient has no children. Postmenopausal. 02/05/2022, Benign Core Biopsy on the right side. Maternal aunt had breast cancer, age 50. Risk Values: Fabiola 5 year model risk: 1.3%. NCI Lifetime model risk: 11.8%. Prior Study Comparison: 11/21/2014 Bilateral Screening Mammogram, [facility]. 01/09/2022 Bilateral Diagnostic Mammogram, [facility]. Tissue Density: Right: There are scattered fibroglandular densities. Findings: Analyzed By CAD. Diffuse vascular calcifications are redemonstrated. The previous vague density superiorly that corresponded to the patient's palpable, biopsied site is no longer identified. No significant change from prior exams. Overall Assessment: Benign, BI-RAD 2 Management: Screening Mammogram of both breasts in 6 months. 1. Patient should continue monthly self breast exams. 2. A clinical breast exam by your physician is recommended on an annual basis. 3. This exam should not preclude additional follow-up of suspicious palpable abnormalities. Results were given to the patient verbally at the time of exam. Electronically signed and approved by: Adithya Amado M.D. Radiologist
== END | disposition home or self-care (01) ==
LOC: RADMAMWWP 13:08
PROVIDERS: ATTEND Surgery
DX: R92.8 Other abnormal and inconclusive findings on diagnostic imaging of breast (principal); Z78.0 Asymptomatic menopausal state; Z80.3 Family history of malignant neoplasm of breast
CPT/HCPCS: 77065; G0279; 77061